=== PATIENT | male | born 1945 | race Caucasian/White ===

== ENCOUNTER 2020-06-21 07:39 | Outpatient (CLI) | payer OTHER, MEDICARE, SELFPAY ==
--- NOTE | ~2020-06-21 | XR_ITS ---
XR shoulder RT min 2V 06/21/2020 08:11 Indication: Right shoulder pain Procedure: 5 views right shoulder Comparison: 01/16/2017 Findings: There is polyarticular osteoarthritis of the right shoulder. There is superior subluxation of the humerus with narrowing of the subacromial space, likely due to rotator cuff tear. No acute fra cture. Visualized lung parenchyma is unremarkable. 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 Reviewed, dictated and finalized at location A. 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
== END 2020-06-21 07:40 | disposition home or self-care (01) ==
LOC: CHSIMG 07:44
PROVIDERS: PCP Internal Medicine; Visit Provider Orthopaedic Surgery
DX: M25.511 Pain in right shoulder (principal)
CPT/HCPCS: 73030

== ENCOUNTER → 2021-10-01 00:18 | Outpatient (CLI) | payer MEDICARE, OTHER, SELFPAY ==
[2021-10-01 11:16] LABS: SARS-CoV-2 RNA PCR Negative
== END ==
PROVIDERS: PCP Internal Medicine; Visit Provider Internal Medicine Gastroenterology
DX: Z01.812 Encounter for preprocedural laboratory examination (principal); Z20.822 Contact with and (suspected) exposure to COVID-19
CPT/HCPCS: C9803; U0003; U0005

== ENCOUNTER 2021-10-04 00:07 | Day surgery (SDC) | payer MEDICARE, OTHER, SELFPAY ==
[2021-09-20 08:49] VITALS: BMI 28.1
[2021-10-04 06:35] VITALS: BP 175/79; PULSE 55; RESP 18; TEMP 36.4; O2SAT 100; BMI 27.9
--- NOTE | 2021-10-04 06:47 | WPDANESEPPF ---
Anes - Initial Pre Proc Eval Procedure: Operation Date: 10/04/21 08:00 Proposed Procedures p Screening Colonoscopy - Vicente Bain MD Date/Time: 10/04/21 06:47 Surgeon: Vicente Bain MD Pre Op Diagnosis: hx of colon polyps, neoplasm screening Patient Data Age: 76 Gender: M Height: 1.73 m Weight: 83.4 kg Last Vital Signs Temp 36.4 C L 10/04/21 06:35 Pulse 55 L 10/04/21 06:35 Resp 18 10/04/21 06:35 BP 175/79 H 10/04/21 06:35 Pulse Ox 100 10/04/21 06:35 Allergies Allergy/AdvReac Type Severity Reaction Status Date / Time No Known Allergies Allergy Verified 10/04/21 06:43 Home Medications Medication Instructions Recorded Confirmed Type acetaminophen 325 mg capsule 325 mg PO Q6H PRN 06/21/20 10/04/21 History allopurinol 100 mg tablet 200 mg PO DAILY 06/21/20 10/04/21 History aspirin 81 mg tablet,delayed 81 mg PO DAILY 06/21/20 10/04/21 History release uauzwet-reyihnuei-nrxqrh-zinc 1 tablet PO DAILY 06/21/20 10/04/21 History tablet ibuprofen 200 mg capsule 200 mg PO Q6H PRN 06/21/20 10/04/21 History lisinopril 40 mg tablet 40 mg PO DAILY 06/21/20 10/04/21 History lovastatin 40 mg tablet 40 mg PO DAILY 06/21/20 10/04/21 History metoprolol tartrate 25 mg tablet 25 mg PO DAILY 06/21/20 10/04/21 History jugyhwec-vsx-ewwfx acid 0.4 1 tablet PO DAILY 06/21/20 10/04/21 History mg-lycopene 300 mcg-lutein 250 mcg tablet celecoxib 200 mg PO DAILY 09/20/21 10/04/21 History glucosamine sulfate [Glucosamine] 1 mg PO DAILY 09/20/21 10/04/21 History omega 9-qgm-ime-fish oil [Fish Oil] 1 cap PO DAILY 09/20/21 10/04/21 History sitagliptin-metformin [Janumet] 1 tablet PO DAILY 09/20/21 10/04/21 History Patient hx anesthesia problems: none Family hx anesthesia problems: none Results Review: All pre-operative results and documents have been reviewed as part of the pre-operative evaluation. COUNT INCLUDES [facility] Past Medical History Medical History (Updated 06/21/20 @ 15:45 by Mishel Fuentes RT(R)) Gout High cholesterol Hypertension Rotator cuff arthropathy of right shoulder Type II diabetes mellitus Surgical History Surgical History (Updated 10/03/21 @ 14:40 by Saúl Gamino DO) History of carpal tunnel surgery of right wrist History of prostatectomy Family History Family History Grandparent Diabetes mellitus Mother Hypertension Father Patient's father is Social History Social History Smoking status: Never smoker Alcohol intake: never Substance use: never Substance use type: does not use Living arrangements: with family Spiritual care concerns: No Anes - Eval Final PreProcedure Day of Procedure 10/04/21 06:47 Patient weight: overweight Heart: regular rate and rhythm Lungs: clear to auscultation and normal air movement Airway: Mallampati scale class II Neurological: alert and oriented Last oral intake: >/= 8 hours ASA classification: III Emergent: no Anesthetic plan: proceed Anesthesia type and monitoring: general GIVS and standard monitoring Results Review: All pre-operative results and documents have been reviewed as part of the pre-operative evaluation. Informed Consent: The patient's anesthetic plan and its attendant risks and benefits were discussed with the patient/family/POA. Questions were solicited and answers provided to the satisfaction of the patient/family/POA.
[2021-10-04] MEDS: LACTATED RINGERS 1,000 ML 150 ML IV CONT (07:01)
[2021-10-04 07:04] LABS: Glucose Point of Care 189 mg/dl (65-105)
--- NOTE | 2021-10-04 07:47 | PM.HPGS ---
History of Present Illness History of Present Illness Consent: Risks, benefits, and alternatives have been discussed and questions answered. Patient agrees to proceed with procedure. Chief complaint: hx of colon polyps, neoplasm screening Narrative: Griffin Roe is a 76 year old male with history of colon polyp due to have another colonoscopy Review of Systems Constitutional: Constitutional: Denies headache(s) and Denies weakness Eyes: Eyes: Denies blurry vision ENT: Reports Normal hearing present, Denies headache(s) and Denies neck pain Cardiovascular: Cardiovascular: Denies chest pain and Denies dyspnea Respiratory: Respiratory: Denies dyspnea Gastrointestinal: Gastrointestinal: Reports no additional gastrointestinal complaints Genitourinary: Genitourinary: Denies dysuria Musculoskeletal: Musculoskeletal: Denies neck pain Integumentary/Breasts: Skin/Breast: Denies dry skin Neurologic: Reports Normal hearing present, Denies headache(s) and Denies weakness Psychiatric: Psychiatric: Denies anxiety Endocrine: Endocrine: Denies change in body appearance Hematologic/Lymphatic: Hematologic/Lymphatic: Denies easy bleeding Allergic/Immunologic: Allergic/Immunologic: Denies urticaria PMFSH Past Medical History Medical History (Updated 10/04/21 @ 07:47 by Vicente Bain MD) Colon polyp Gout High cholesterol Hypertension Rotator cuff arthropathy of right shoulder Type II diabetes mellitus Surgical History Surgical History (Updated 10/03/21 @ 14:40 by Saúl Gamino DO) History of carpal tunnel surgery of right wrist History of prostatectomy Family History Family History Grandparent Diabetes mellitus Mother Hypertension Father Patient's father is Social History Social History Smoking status: Never smoker Alcohol intake: never Substance use: never Substance use type: does not use Living arrangements: with family Spiritual care concerns: No Meds Home Medications and Allergies Home Medications Medication Instructions Recorded Confirmed Type acetaminophen 325 mg capsule 325 mg PO Q6H PRN 06/21/20 10/04/21 History allopurinol 100 mg tablet 200 mg PO DAILY 06/21/20 10/04/21 History aspirin 81 mg tablet,delayed 81 mg PO DAILY 06/21/20 10/04/21 History release rqnstou-oaxpssyxl-aqxvhx-zinc 1 tablet PO DAILY 06/21/20 10/04/21 History tablet ibuprofen 200 mg capsule 200 mg PO Q6H PRN 06/21/20 10/04/21 History lisinopril 40 mg tablet 40 mg PO DAILY 06/21/20 10/04/21 History lovastatin 40 mg tablet 40 mg PO DAILY 06/21/20 10/04/21 History metoprolol tartrate 25 mg tablet 25 mg PO DAILY 06/21/20 10/04/21 History pakxsowc-fyf-xehww acid 0.4 1 tablet PO DAILY 06/21/20 10/04/21 History mg-lycopene 300 mcg-lutein 250 mcg tablet celecoxib 200 mg PO DAILY 09/20/21 10/04/21 History glucosamine sulfate [Glucosamine] 1 mg PO DAILY 09/20/21 10/04/21 History omega 3-kcq-jqf-fish oil [Fish Oil] 1 cap PO DAILY 09/20/21 10/04/21 History sitagliptin-metformin [Janumet] 1 tablet PO DAILY 09/20/21 10/04/21 History Allergies Allergy/AdvReac Type Severity Reaction Status Date / Time No Known Allergies Allergy Verified 10/04/21 06:43 Vital Signs Vital Signs - 24 hr 10/04/21 06:35 Temperature 97.5 F L Pulse Rate 55 L Respiratory Rate 18 Blood Pressure 175/79 H Pulse Oximetry 100 Exam Const: General: comfortable and no acute distress HENMT: General nose exam: Normal nares present Eyes: General: appearance normal, both eyes and all related structures Neck: Neck: no JVD Resp: Auscultation: clear to auscultation bilaterally Cardio: Rate: regular rate Rhythm: regular rhythm GI: Inspection: non-distended GI Palp: Yes Soft to palpation Skin: General skin exam: normal color Neuro: General: gait no
[2021-10-04 08:26] VITALS: BP 100/75; PULSE 62; RESP 21; O2SAT 100
[2021-10-04 08:36] VITALS: BP 106/65; PULSE 56; RESP 20; O2SAT 100
[2021-10-04 08:46] VITALS: BP 115/72; PULSE 55; RESP 20; O2SAT 100
== END 2021-10-04 09:01 | disposition home or self-care (01) ==
PROVIDERS: PCP Internal Medicine; Visit Provider Internal Medicine Gastroenterology
PROC: 0DJD8ZZ Inspection of Lower Intestinal Tract, Via Natural or Artificial Opening Endoscopic (ICD-10-PCS; CPT 45378; principal; 2021-10-04 08:00)
DX: Z12.11 Encounter for screening for malignant neoplasm of colon (principal); K64.8 Other hemorrhoids; K57.30 Diverticulosis of large intestine without perforation or abscess without bleeding; Z86.010 Personal history of colon polyps; I10 Essential (primary) hypertension; E11.9 Type 2 diabetes mellitus without complications; E78.00 Pure hypercholesterolemia, unspecified; M10.9 Gout, unspecified; Z79.82 Long term (current) use of aspirin; Z79.84 Long term (current) use of oral hypoglycemic drugs
CPT/HCPCS: G0105; 82948; J2704; J7120

== ENCOUNTER 2021-12-12 09:10 | Outpatient (CLI) | payer MEDICARE, OTHER, SELFPAY ==
[2021-12-12 10:29] LABS: SARS-CoV-2 RNA PCR Negative (Negative)
== END 2021-12-12 09:11 | disposition home or self-care (01) ==
LOC: CHSLAB 09:18
PROVIDERS: PCP Internal Medicine; Visit Provider Internal Medicine Critical Care Medicine
DX: Z01.812 Encounter for preprocedural laboratory examination (principal); Z20.822 Contact with and (suspected) exposure to COVID-19
CPT/HCPCS: C9803; U0003; U0005

== ENCOUNTER 2021-12-14 19:53 | Outpatient (CLI) | payer MEDICARE, OTHER, SELFPAY ==
--- NOTE | 2021-12-15 20:32 | WPDSLEEPSTUD ---
Sleep Study Date of Study: 12/14/21 Ordering Provider: Edwar Mike APRN Interpreting Physician: Gin Martinez MD Sleep Study Type: BiPAP Titration Height: 1.73 m Weight: 5.103 kg Body Mass Index: 1.7 Neck Circumference (inches): 17.5 [place]: 9 Reason for Sleep Study History of mixed sleep apnea, has not worn CPAP for many years * 09/15/2011 PSG @ [facility] - severe complex sleep apnea with AHI 58 with saturation to 83%. * 11/14/2011 Bilevel Titration @ [facility] - recommend BiPAP 28/02 with rate 12 Sleep History Griffin Roe is a 76 year old man with difficulty getting to sleep and staying asleep. There is heavy snoring and jerking while sleeping. His initial sleep study was in 2011, he says that he was on CPAP for about 6 years and for some reason just quit using it. He does not awaken from sleep feeling short of breath. He occasionally awakens at night with heartburn, belching coughing. He constantly snores and frequently this is loud enough that others complain about it. He rarely has trouble sleeping with a cold. He does not wake up gasping for breath at night. He frequently has breathing problems at night observed by others. He frequently sweats excessively night. He does not notice his heart pounding or beating irregularly at night. He occasionally falls asleep during the day. He does not fall asleep involuntarily or while driving. He does not have loss of muscle tone with strong emotion. Does not have daytime difficulties due to excessive sleepiness. He does not feel paralyzed on waking or falling asleep. He occasionally has vivid dreamlike scenes upon awakening or falling asleep. He does not feel afraid to go to sleep. He does not have nightmares. He rarely remembers his dreams. He does not have racing thoughts. He occasionally feels sad or depressed. He rarely has anxiety. He does not have muscular tension. Does not notice parts of his body jerking. He does not kick at night. He denies having crawling and aching feelings in his legs. He does not have any kind of leg pain at night. He does not have morning jaw pain. Does not grind his teeth during sleep. He frequently is bothered by pain during the day. He is not awakened by pain at night. He occasionally wakes up feeling stiff in the morning. He does not wake up with sore or achy muscles. He occasionally wakes up with pain in the neck and spine. Normal bedtime is 10:30 p.m. taking 1/2 hour to fall asleep waking up 3 times at night to go to the bathroom. His normal wake up time is 5:00 a.m.. On the weekends bedtime is 11:00 p.m., still wakes at 5:00 a.m. He takes naps in the day. A short nap 10-15 minutes long is refreshing. He feels better in the afternoon or evening compared to the morning. He often wakes up feeling tired, not refreshed. Habits: Never smoked tobacco. No caffeine, alcohol, recreational drugs. [facility] Past Medical History Medical History (Updated 01/13/22 @ 18:29 by Gin Martinez MD) Colon polyp Gout High cholesterol Hypertension Obesity Obstructive sleep apnea Prostate cancer Rotator cuff arthropathy of right shoulder Type II diabetes mellitus Surgical History Surgical History History of carpal tunnel surgery of right wrist History of prostatectomy Family History Family History Grandparent Diabetes mellitus Mother Hypertension Father Patient's father is Social History Social History Smoking status: Never smoker Alcohol intake: never Substance use: never Substance use type: does not use Spiritual care concerns: No Medications Home Medications Medication Instructions Recorded Confirmed Type acetaminophen 325 mg capsule 325 mg PO Q6H PRN Headache 06/21/20 11/25/21 History (Tylenol) allop
== END 2021-12-15 05:16 | disposition home or self-care (01) ==
LOC: CHSCSM 19:55
PROVIDERS: PCP Internal Medicine; Visit Provider Nurse Practitioner Family
DX: G47.30 Sleep apnea, unspecified (principal)
CPT/HCPCS: 95811

== ENCOUNTER 2022-02-03 09:42 | Outpatient (CLI) | payer MEDICARE, OTHER, SELFPAY ==
--- NOTE | 2022-02-03 09:43 | ECHO_ITS ---
Patient Info Name: Griffin Roe Age: 76 years : 1945 Gender: Male Ht: 68 in Wt: 187 lbs BSA: 2.04 m2 HR: 65 bpm BP: 165 / 91 mmHg Technical Quality: Good Exam Date: 02/03/2022 9:58 AM Exam Location: [facility] Patient Status: Outpatient Admit Date: 02/03/2022 Staff Ordering Physician: Gypsy Thomas PA-C [employer]osaic Tile Maker: Joslyn Abad RDCS Attending Provider: Gypsy Thomas PA-C Exam Type: CA echo doppler color flow Study Info Indications G47.31 - PRIMARY CENTRAL SLEEP APNEA Complete two-dimensional, color flow and Doppler transthoracic echocardiogram is performed. Summary 1. Complete two-dimensional, color flow and Doppler transthoracic echocardiogram is performed. 2. Left ventricular chamber dimension is normal. 3. Left ventricular systolic function is normal, estimated at 60-65%. 4. The left ventricular diastolic function is grade I diastolic dysfunction. 5. E/e' 8 is minimally elevated. 6. Global longitudinal strain is normal at -20.0%. 7. Left atrial chamber dimension is moderately enlarged. 8. There is mild aortic valve regurgitation. 9. No pulmonary hypertension, estimated pulmonary arterial systolic pressure is 31 mmHg. Left Ventricle E/e' 8 is minimally elevated. Global longitudinal strain is normal at -20.0%. Left ventricular chamber dimension is normal. Left ventricular systolic function is normal, estimated at 60-65%. The left ventricular diastolic function is grade I diastolic dysfunction. Right Ventricle Right ventricular systolic function is normal and with normal TAPSE 2.8 cm. Right ventricular chamber dimension is normal. Left Atria Left atrial chamber dimension is moderately enlarged. Right Atria Right atrial chamber dimension is normal. Aortic Valve The aortic valve is trileaflet. There is no aortic valve stenosis. There is mild aortic valve regurgitation. Pulmonic Valve There is no pulmonic regurgitation. Mitral Valve There is no mitral valve stenosis. There is no mitral valve regurgitation. Tricuspid Valve There is no tricuspid valve regurgitation. No pulmonary hypertension, estimated pulmonary arterial systolic pressure is 31 mmHg. Pericardium/Pleural There is no pericardial effusion. Inferior Vena Cava Normal inferior vena cava with >50% collapse upon inspiration consistent with normal right atrial pressure, 5 mmHg. Aorta The aortic root size at the sinus of Valsalva is normal. Left Ventricular Outflow Tract Name Value Normal LVOT 2D LVOT Diameter 2.1 cm LVOT Doppler LVOT Peak Gradient 3 mmHg LVOT Mean Gradient 2 mmHg LVOT VTI 20 cm LVOT VTI/AV VTI Ratio 0.8 LVOT Stroke Volume 69 ml LVOT CO 4.3 l/min LVOT CI 2.1 l/min/m2 Pulmonic Valve Name Value Normal
== END 2022-02-03 09:43 | disposition home or self-care (01) ==
LOC: ANHCARD 09:43
PROVIDERS: PCP Internal Medicine; Visit Provider Physician Assistant
DX: G47.31 Primary central sleep apnea (principal)
CPT/HCPCS: 93306

== ENCOUNTER 2022-09-08 10:10 | Outpatient (RCR) | payer MEDICARE, OTHER, SELFPAY ==
--- NOTE | 2022-09-08 13:34 | PTOPEVAL1 ---
Assessment and note entered by Margi Fox DPT Evaluation Information Assessment Status Evaluation Diagnosis L knee pain Onset 09/05/22 Subjective Information Patient he has had L knee pain for the last ~2 years. He reports he went to the MD who said his knee was bone on bone . He has had injections that helped with pain for a short amount of time. He reports he is now getting a gel injection and to attend PT for 2-3 visits to learn HEP. He reports pain is most present when he weight bears on the L LE. 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 Reported Pain Level Pain Score 0: Self Report Assessment PT Clinical Summary Patient is a 77 year old male who presents to PT with L knee pain. 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 He would benefit from skilled PT to address impairments and learn independent HEP to return to [facility]. Plan of Care Interventions Electrical Stimulation,Gait Training,Hot Pack/Cold Pack,Manual Therapy,Mechanical Traction,Neuro Re- education,Patient/Caregiver Educati,Therapeutic Activities,Therapeutic Exercise PT Services Indicated Yes Treatment Frequency and 2x/weekly for 10 visits Duration These treatments will address the objective and functional deficits as defined above. The patient will be advanced safely and appropriately in order for the patient to progress towards his/her prior level of function. Additional exercises will be introduced and as well as a comprehensive home exercise program upon discharge, if needed, ?to ensure carryover of functional gains achieved in the clinic. This treatment plan has been reviewed and agreement upon by the patient.
--- NOTE | 2022-10-02 08:14 | PTOPDC ---
Assessment and note entered by Margi Fox DPT Evaluation Information Assessment Status Re-evaluation Diagnosis L knee pain Onset 09/05/22 Subjective Information Patient reports his pain has decreased pain most times. He does report that he gets pain when he pivots on the L LE. 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 He goes to get a gel injection tomorrow in the L knee. Reported Pain Level Pain Score 0: Self Report Assessment PT Clinical Summary Patient has been seen for 8 visits from 09/08/22-03/06. He has made good progress and met goals for strength and ROM. 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 He is independent with HEP and is appropriate for DC at this time. Plan of Care PT Services Indicated No
== END 2022-12-07 23:59 | disposition home or self-care (01) ==
LOC: CHSPT 10:10
DX: M25.562 Pain in left knee (principal); M17.12 Unilateral primary osteoarthritis, left knee
CPT/HCPCS: 97014; 97110; 97161; 97530; G0283

== ENCOUNTER 2023-07-18 09:47 | Outpatient (RCR) | payer MEDICARE, OTHER, SELFPAY ==
--- NOTE | 2023-07-18 10:39 | OPREHPOC ---
Outpatient Therapy Plan of Care This is a Multidisciplinary Plan of Care that may contain components documented by all disciplines (PT, OT, and ST.) PT Problem 1 PT Problem #1 Knowledge Deficit PT Goal 1 Goal 1. independent and compliant with HEP Target Visit 6 PT Problem 2 PT Problem #2 Impaired Strength PT Goal 1 Goal 1. 3+/5 or better L shoulder flex Target Visit 12 PT Problem 3 PT Problem #3 Impaired Range of Motion PT Goal 1 Goal 1. improve active L shoulder flexion to 90 degrees Target Visit 6 PT Goal 2 Goal 1. improve active L shoulder flexion to 120 degrees or better 2. improve L shoulder active ER to 65 degrees or better 3. improve L shoulder active IR to 60 degrees or better Target Visit 12 PT Problem 4 PT Problem #4 Impaired Functional Mobil PT Goal 1 Goal 1. quick dash to display less than 40% functional deficits 2. patient to lift 2lbs to shoulder level shelf with the L hand. 3. patient to push car door open with the L hand with no increased pain/symptoms 4. patient to dress shirts and coats without increased pain or difficulty with the L UE. Target Visit 12
--- NOTE | 2023-07-18 10:40 | PTOPEVAL1 ---
Assessment and note entered by JT File, PT Evaluation Information Assessment Status Evaluation Diagnosis bilateral shoulder pain, bilateral rotator cuff arthropathy, trap spasms Onset 05/18/23 Subjective Information patient reports around the beginning of May he began having a burning in the L shoulder and down the arm. he went to the chiropractor which helped. he then got injections to the shoulder and had x-rays of the shoulders. he reports the R shoulder is worse on x-rays compared to the L. he reports he continued treatment with chiropractor for a while. he reports he has no neck pain. he reports it is mostly the L more than the R shoulder. he reports he has increased pain in the L shoulder with pushing the car door open. he reports he is taking a lot of ibuprofen that helps . he reports it is also difficult to put on shirt and coat. he reports he is unable to lift the arm up straight in front of him. out to the side is better he reports. Reported Pain Level Pain Score 5: Self Report Assessment PT Clinical Summary mr. larsen is an 78 yo man who presents to skilled PT services for evaluation and treatment of L shoulder pain. he presents this date with pain, weakness, decreased rom, and limited functional reaching of the L shoulder. he displays signs and symptoms consistent with L rotator cuff tear/tendonitis. he also displays weakening of the R rotator cuff. likely bilateral rotator cuff arthropathy that is worse on the L. he would benefit from continued skilled PT to address his objective/functional deficits and improve his functional reaching/lifting and use of the L UE to improve his quality of life. Plan of Care Interventions Electrical Stimulation,Hot Pack/Cold Pack,Manual Therapy,Neuro Re-education,Patient/Caregiver Educati,Therapeutic Activities,Therapeutic Exercise PT Services Indicated Yes Treatment Frequency and 3x weekly for 12 visits Duration These treatments will address the objective and functional deficits as defined above. The patient will be advanced safely and appropriately in order for the patient to progress towards his/her prior level of function. Additional exercises will be introduced and as well as a comprehensive home exercise program upon discharge, if needed, ?to ensure carryover of functional gains achieved in the clinic. This treatment plan has been reviewed and agreement upon by the patient.
--- NOTE | 2023-08-13 08:33 | OPREHPOC ---
Outpatient Therapy Plan of Care This is a Multidisciplinary Plan of Care that may contain components documented by all disciplines (PT, OT, and ST.) PT Problem 1 PT Problem #1 Knowledge Deficit PT Goal 1 Goal 1. independent and compliant with HEP Target Visit 6 PT Problem 2 PT Problem #2 Impaired Strength PT Goal 1 Goal 1. 3+/5 or better L shoulder flex Target Visit 12 Comment unable to reach 90deg PT Problem 3 PT Problem #3 Impaired Range of Motion PT Goal 1 Goal 1. improve active L shoulder flexion to 90 degrees Target Visit 6 Progress Not Met PT Goal 2 Goal 1. improve active L shoulder flexion to 120 degrees or better 2. improve L shoulder active ER to 65 degrees or better 3. improve L shoulder active IR to 60 degrees or better Target Visit 12 Comment continue PT Problem 4 PT Problem #4 Impaired Functional Mobil PT Goal 1 Goal 1. quick dash to display less than 40% functional deficits 2. patient to lift 2lbs to shoulder level shelf with the L hand. 3. patient to push car door open with the L hand with no increased pain/symptoms 4. patient to dress shirts and coats without increased pain or difficulty with the L UE. Target Visit 12 Comment continue
--- NOTE | 2023-08-13 08:33 | PTOPPROG ---
Assessment and note entered by Margi Fox DPT Evaluation Information Assessment Status Re-evaluation Diagnosis bilateral shoulder pain, bilateral rotator cuff arthropathy, trap spasms Onset 05/18/23 Subjective Information patient reports his shoulder has improved since start of PT. he reports he has been able to do most house hold activities as long as he does not have to reach overhead. he reports the burning and shooting pain down his arm has improved. he reports he continues to have catching with reaching above shoulder height. he reports he returns to MD next week. Assessment PT Clinical Summary Mr. Roe has been seen for 10 visits of skilled PT. He reports overall decreased pain in the L arm and has been able to perform tasks below shoulder height. He reports he continues to have difficulty with reaching over shoulder height and gets a catch . He does demonstrate improved L shoulder flexion to 73 degs but is unable to push past pain. He would benefit from continued skilled PT to address remaining impairments and return to [facility]. Plan of Care Interventions Electrical Stimulation,Hot Pack/Cold Pack,Manual Therapy,Neuro Re-education,Patient/Caregiver Educati,Therapeutic Activities,Therapeutic Exercise PT Services Indicated Yes Treatment Frequency and continue with remaining 2 visits Duration These treatments will address the objective and functional deficits as defined above. The patient will be advanced safely and appropriately in order for the patient to progress towards his/her prior level of function. Additional exercises will be introduced and as well as a comprehensive home exercise program upon discharge, if needed, ?to ensure carryover of functional gains achieved in the clinic. This treatment plan has been reviewed and agreement upon by the patient.
--- NOTE | 2023-08-20 09:36 | OPREHPOC ---
Outpatient Therapy Plan of Care This is a Multidisciplinary Plan of Care that may contain components documented by all disciplines (PT, OT, and ST.) PT Problem 1 PT Problem #1 Knowledge Deficit PT Goal 1 Goal 1. independent and compliant with HEP Target Visit 6 Progress Not Met PT Problem 2 PT Problem #2 Impaired Strength PT Goal 1 Goal 1. 3+/5 or better L shoulder flex Target Visit 12 Progress Met Comment . PT Problem 3 PT Problem #3 Impaired Range of Motion PT Goal 1 Goal 1. improve active L shoulder flexion to 90 degrees Target Visit 6 Progress Met PT Goal 2 Goal 1. improve active L shoulder flexion to 120 degrees or better 2. improve L shoulder active ER to 65 degrees or better 3. improve L shoulder active IR to 60 degrees or better Target Visit 12 Progress Not Met Comment . PT Problem 4 PT Problem #4 Impaired Functional Mobil PT Goal 1 Goal 1. quick dash to display less than 40% functional deficits 2. patient to lift 2lbs to shoulder level shelf with the L hand. 3. patient to push car door open with the L hand with no increased pain/symptoms 4. patient to dress shirts and coats without increased pain or difficulty with the L UE. Target Visit 12 Progress Not Met Comment .
--- NOTE | 2023-08-20 09:36 | PTOPDC ---
Assessment and note entered by Margi Fox DPT Evaluation Information Assessment Status Evaluation Diagnosis bilateral shoulder pain, bilateral rotator cuff arthropathy, trap spasms Onset 05/18/23 Subjective Information patient reports shoulder has improved since start of PT. He reports that he continues to have pain with activity above his head. he reports pain with dressing and opening car doors. he reports he is not always good at doing his HEP but is active at home. RTMD on 08/22/23 Reported Pain Level Pain Score 2: Self Report Assessment PT Clinical Summary Mr. Roe was seen for 12 visits of skilled PT. He made progress but is continue to be limited with activities above his head with reported catch with positive painful arc of the L UE. He continues to have limited AROM of the L shoulder and decreased strength. He reports improvement in function below shoulder height with some pain with dressing and opening car doors. Patient returns to MD on 08/22/23. He will be discharged to independent [facility] at this time. Plan of Care PT Services Indicated No
== END 2023-08-20 10:18 | disposition home or self-care (01) ==
LOC: CHSPT 09:47
DX: M25.511 Pain in right shoulder (principal); M25.512 Pain in left shoulder; M12.811 Other specific arthropathies, not elsewhere classified, right shoulder; M12.812 Other specific arthropathies, not elsewhere classified, left shoulder; M62.838 Other muscle spasm
CPT/HCPCS: 71046; 97014; 97110; 97161; G0283

== ENCOUNTER 2023-07-18 11:25 | Outpatient (CLI) | payer MEDICARE, OTHER, SELFPAY ==
--- NOTE | ~2023-07-18 | XR_ITS ---
Clinical Indication: Bradycardia PA and lateral views of the chest: Comparison: None Findings: The lungs are clear, without evidence of focal consolidation or pleural effusion. Cardiome diastinal silhouette is within normal limits. Bones and soft tissues are unremarkable. Impression: Normal chest. Reviewed, dictated and finalized at location . L SUMMER INTERN Impression: Normal chest.
== END 2023-07-18 11:26 | disposition home or self-care (01) ==
LOC: CHSIMG 11:29
PROVIDERS: PCP Internal Medicine; Visit Provider Internal Medicine
DX: E83.52 Hypercalcemia (principal); R00.1 Bradycardia, unspecified
CPT/HCPCS: 71046

== ENCOUNTER 2023-12-13 09:40 | Outpatient (CLI) | payer MEDICARE, OTHER, SELFPAY ==
[2023-12-13 09:55] LABS: Basophils Absolute Auto 0.06 K/mm3 (0.00-0.10); Basophils Percent Auto 0.8 % (0.0-1.0); Eosinophils Absolute Auto 0.22 K/mm3 (0.02-0.50); Eosinophils Percent Auto 2.8 % (1.0-6.0); Hematocrit 45.8 % (37.0-46.0); Hemoglobin 15.7 g/dL (12.4-15.3); Immature Granulocyte Absolute 0.08 K/mm3 (0.00-0.00); Lymphocytes Absolute Auto 1.84 K/mm3 (1.10-4.50); Lymphocytes Percent Auto 23.8 % (18.0-42.0); Mean Corpuscular HGB Conc 34.3 g/dL (32-36); Mean Corpuscular Volume 90.3 fL (78.0-102.0); Mean Platelet Volume 10.4 fl (8.7-11.0); Monocytes Absolute Auto 0.55 K/mm3 (0.10-0.90); Monocytes Percent Auto 7.1 % (2.0-11.0); Neutrophils Absolute Auto 4.98 K/mm3 (1.70-7.20); Neutrophils Percent Auto 64.5 % (50.0-70.0); Platelet Count Result 153 K/mm3 (150-420); Red Blood Count 5.07 M/mm3 (4.70-6.10); Red Cell Distribution Width 13.5 % (11.6-14.4); White Blood Count 7.7 K/mm3 (4.8-10.8)
[2023-12-13 10:08] LABS: Appearance Urine Clear (Clear); Bilirubin Urine Negative (Negative); Blood Urine Negative (Negative); Color Urine Light Yellow (Yellow); Glucose Urine UA 3+ (Negative); Ketones Urine Negative (Negative); Leukocyte Esterase Ur Negative (Negative); Nitrate Urine Negative (Negative); Protein Urine Negative (Negative); Specific Grav Ur 1.015 (1.010-1.020); Urobilinogen Urine 0.2 mg/dL (0.2-1.0)
[2023-12-13 10:15] LABS: Add Urine Microscopic? YES; RBC Urine None seen /hpf (0-2); WBC Urine Noted /hpf (0-3)
[2023-12-13 10:16] LABS: Bacteria Urine None seen /hpf; Squamous Epithelial Cell Urine Few /hpf (Few); Transitional Epi Cells Urine Few /hpf; White Blood Cell Casts Urine Present /lpf
[2023-12-13 10:29] LABS: Alanine Aminotransferase 29 U/L (16-63); Albumin Level 3.8 g/dL (3.4-5.0); Alkaline Phosphatase 99 U/L (46-116); Anion Gap 12 mmol/L (4-12); Aspartate Amino Transferase 22 U/L (15-37); Bilirubin,Total 0.4 mg/dL (0.00-1.00); Blood Urea Nitrogen 49 mg/dL (7-18); Calcium 9.8 mg/dL (8.5-10.1); Carbon Dioxide 21 mmol/L (21-32); Chloride 104 mmol/L (98-108); Estimated Glomerular Filt Rate 30; Glucose 180 mg/dL (70-99); Osmolality Calculated 302 mOsm/kg (285-295); Phosphorus 4.9 mg/dL (2.6-4.7); Potassium 5.1 mmol/L (3.5-5.1); Sodium 137 mmol/L (136-145); Uric Acid 4.3 mg/dL (3.5-7.2)
[2023-12-13 10:31] LABS: CRP < 0.5 mg/dL (0.0-0.9)
[2023-12-14 12:23] LABS: Parathyroid Intact 58 pg/mL (16-77)
== END 2023-12-13 09:41 | disposition home or self-care (01) ==
LOC: CHSLAB 09:43
PROVIDERS: PCP Internal Medicine; Visit Provider Internal Medicine
DX: N17.8 Other acute kidney failure (principal)
CPT/HCPCS: 36415; 80053; 81001; 83970; 84100; 84550; 85025; 86140

== ENCOUNTER 2023-12-17 08:21 | Outpatient (CLI) | payer MEDICARE, OTHER, SELFPAY ==
--- NOTE | 2023-12-17 08:31 | EST_ITS ---
Patient Info Name: Griffin Roe Age: 78 years : 1945 Gender: Male Ht: 65 in Wt: 190 lbs BSA: 2.02 m2 HR: 48 bpm BP: 138 / 71 mmHg Heart Rhythm: Sinus Rhythm Technical Quality: Good Exam Date: 12/17/2023 9:30 AM Exam Location: Echo Lab Patient Status: Outpatient Admit Date: 12/17/2023 Staff Ordering Physician: Oracio De Guzman Attending Provider: Oracio De Guzman Exam Type: CA stress jatin w NM Study Info A regadenoson stress test was performed. History/Risk Factors Hypertension: Yes Dyslipidemia: Yes Diabetes Mellitus: Type II Summary 1. 1. Negative lexiscan stress test for ischemic ST changes by ECG criteria. 2. 2. Stable hemodynamics throughout the test. 3. 3. Nuclear scan to follow and will be reported separately. Please correlate with it. Protocol: Lexiscan Stress ECG Details Stage: REST Duration (min): 1 min : 19 sec HR (bpm): 48 SBP (mmHg): 138 DBP (mmHg): 71 Stage: REST Duration (min): 8 min : 8 sec HR (bpm): 52 SBP (mmHg): 138 DBP (mmHg): 71 Stage: STAGE 1 Duration (min): 0 min : 28 sec HR (bpm): 55 SBP (mmHg): 138 DBP (mmHg): 71 Stage: RECOVERY Duration (min): 0 min : 32 sec HR (bpm): 58 SBP (mmHg): 138 DBP (mmHg): 71 Stage: RECOVERY Duration (min): 1 min : 32 sec HR (bpm): 65 SBP (mmHg): 138 DBP (mmHg): 71 Stage: RECOVERY Duration (min): 2 min : 32 sec HR (bpm): 68 SBP (mmHg): 138 DBP (mmHg): 71 Stage: RECOVERY Duration (min): 3 min : 32 sec HR (bpm): 64 SBP (mmHg): 138 DBP (mmHg): 71 Stage: RECOVERY Duration (min): 4 min : 26 sec HR (bpm): 65 SBP (mmHg): 115 DBP (mmHg): 65 Rest HR: 52 bpm Peak HR: 69 bpm Rest Sys BP: 138 mmHg Peak Sys BP: 115 mmHg Max Pred HR: 140 bpm % Max Pred HR: 49 % Target HR: 119 bpm Max RPP: 7,935 bpm*mmHg BP Response: Normal blood pressure response Termination Reason: Completed Protocol Cardiac Symptoms: None Total Time: 0 min : 28 sec Rest Alejandro BP: 71 mmHg Peak Alejandro BP: 65 mmHg Total Dose: 0.4 mg Resting ECG Sinus bradycardia, IVCD, cannot r/o septal infarct, age indeterminate. Stress ECG No abnormal ST/T wave changes. Arrhythmias Occasional PVCs. Report Signatures
--- NOTE | 2023-12-17 14:59 | WPDCARIOSTRE ---
Nuclear Stress Test INDICATIONS Indications: Chest pain PROCEDURE Procedure Performed: Myocardial Perf Spect-Multi Procedure: Patient underwent a lexiscan stress test and immediately was injected with 33.8 mCi of cardiolyte. Multiple tomographic images were obtained. These are of good quality. There is a moderate size, mild inferior perfusion defect with stress imaging. A separate resting images were obtained after patient was injected with 10.4 mCi of cardiolyte. Multiple tomographic images were obtained. These are of good quality. There is a moderate size, mild inferior perfusion defect with rest imaging. CONCLUSION Conclusion: 1. Myocardial perfusion imaging demonstrating a fixed moderate size inferior perfusion defect suggestive of diaphragmatic attenuation artifact. 2. No evidence of reversible ischemia. 3. Left ventriculogram demonstrates mildly global reduced measured LV systolic function with EF 47%. 4. TID score 1.09 is normal.
== END 2023-12-17 08:22 | disposition home or self-care (01) ==
PROVIDERS: PCP Internal Medicine
DX: Z01.818 Encounter for other preprocedural examination (principal); R07.9 Chest pain, unspecified; R00.1 Bradycardia, unspecified; R94.31 Abnormal electrocardiogram [ECG] [EKG]
CPT/HCPCS: 78452; 93017; A9502; J2785

== ENCOUNTER 2023-12-21 12:50 | Outpatient (CLI) | payer MEDICARE, OTHER, SELFPAY ==
[2023-12-21 13:40] LABS: Alanine Aminotransferase 37 U/L (16-63); Albumin Level 3.9 g/dL (3.4-5.0); Alkaline Phosphatase 94 U/L (46-116); Anion Gap 11 mmol/L (4-12); Aspartate Amino Transferase 27 U/L (15-37); Bilirubin,Total 0.6 mg/dL (0.00-1.00); Blood Urea Nitrogen 39 mg/dL (7-18); Calcium 9.8 mg/dL (8.5-10.1); Carbon Dioxide 25 mmol/L (21-32); Chloride 103 mmol/L (98-108); Estimated Glomerular Filt Rate 35; Glucose 171 mg/dL (70-99); Osmolality Calculated 301 mOsm/kg (285-295); Sodium 139 mmol/L (136-145); Total Protein 7.1 g/dL (6.4-8.2)
[2023-12-21 13:41] LABS: Prostate Specific Antigen < 0.1 ng/mL (< OR = 4.0)
== END 2023-12-21 12:51 | disposition home or self-care (01) ==
LOC: CHSLAB 12:53
PROVIDERS: PCP Internal Medicine; Visit Provider Internal Medicine
DX: N28.9 Disorder of kidney and ureter, unspecified (principal); Z85.46 Personal history of malignant neoplasm of prostate
CPT/HCPCS: 36415; 80053; 84153

== ENCOUNTER 2023-12-25 12:44 | Outpatient (CLI) | payer MEDICARE, OTHER, SELFPAY ==
[2023-12-25 13:45] LABS: Alanine Aminotransferase 36 U/L (16-63); Alkaline Phosphatase 92 U/L (46-116); Anion Gap 11 mmol/L (4-12); Aspartate Amino Transferase 21 U/L (15-37); Bilirubin,Total 0.7 mg/dL (0.00-1.00); Blood Urea Nitrogen 41 mg/dL (7-18); Calcium 10.1 mg/dL (8.5-10.1); Carbon Dioxide 24 mmol/L (21-32); Chloride 103 mmol/L (98-108); Estimated Glomerular Filt Rate 36; Glucose 244 mg/dL (70-99); Osmolality Calculated 304 mOsm/kg (285-295); Potassium 5.1 mmol/L (3.5-5.1); Sodium 138 mmol/L (136-145); Total Protein 7.3 g/dL (6.4-8.2)
== END 2023-12-25 12:45 | disposition home or self-care (01) ==
LOC: CHSLAB 12:46
PROVIDERS: PCP Internal Medicine; Visit Provider Internal Medicine
DX: N17.9 Acute kidney failure, unspecified (principal)
CPT/HCPCS: 36415; 80053

== ENCOUNTER 2024-01-02 14:02 | Outpatient (CLI) | payer MEDICARE, OTHER, SELFPAY ==
--- NOTE | ~2024-01-02 | XR_ITS ---
Right Shoulder Technique: AP and scapular Y views were obtained. Clinical History: Palpable lump Findings: No fracture or dislocation is seen. Osseous alignment is anatomic. The glenohumeral and acr omioclavicular joints demonstrate mild degenerative change. There is soft tissue prominence superior to the AC joint. Impression: Soft tissue prominence superior to the AC joint. Underlying soft tissue mass or cyst could be present . Consider MR imaging for further evaluation. Underlying mild degenerative changes, as above. Reviewed, dictated and finalized at [facility]. Impression: Soft tissue prominence superior to the AC joint. Underlying soft tissue mass or cyst could be present. Consider MR imaging for further evaluation. Underlying mild degenerative changes, as above.
--- NOTE | ~2024-01-02 | XR_ITS ---
Lumbosacral Spine: AP and lateral views Clinical History: Pain Findings: There is levoscoliosis. There is 4 mm anterolisthesis of L3 over L4. There is severe degene rative disc narrowing at L1-L2, L4-L5, L5-S1. There is severe facet arthropathy throughout the lumbar spine. The sacroiliac joints are normally outlined. Impression: Advanced degenerative spondylosis. 4 mm anterolisthesis of L3 over L4. Levoscoliosis. Reviewed, dictated and finalized at location [facility]. Impression: Advanced degenerative spondylosis. 4 mm anterolisthesis of L3 over L4. Levoscoliosis.
--- NOTE | ~2024-01-02 | XR_ITS ---
AP and lateral views of the left hip Clinical history: Pain Findings: No acute fracture or dislocation is seen. Osseous alignment is anatomic. Left hip joint spa ce is preserved. Soft tissues are unremarkable. Impression: No significant abnormality is seen. Reviewed, dictated and finalized at location . Impression: No significant abnormality is seen.
[2024-01-02 15:13] LABS: Alanine Aminotransferase 41 U/L (16-63); Albumin Level 4.1 g/dL (3.4-5.0); Alkaline Phosphatase 113 U/L (46-116); Anion Gap 7 mmol/L (4-12); Aspartate Amino Transferase 28 U/L (15-37); Bilirubin,Total 0.5 mg/dL (0.00-1.00); Blood Urea Nitrogen 42 mg/dL (7-18); Calcium 10.5 mg/dL (8.5-10.1); Carbon Dioxide 27 mmol/L (21-32); Chloride 102 mmol/L (98-108); Estimated Glomerular Filt Rate 36; Glucose 177 mg/dL (70-99); Osmolality Calculated 296 mOsm/kg (285-295); Potassium 4.7 mmol/L (3.5-5.1); Sodium 136 mmol/L (136-145); Total Protein 7.5 g/dL (6.4-8.2)
== END 2024-01-02 14:03 | disposition home or self-care (01) ==
LOC: CHSLAB 14:04
PROVIDERS: PCP Internal Medicine; Visit Provider Internal Medicine
DX: M25.50 Pain in unspecified joint (principal); N18.9 Chronic kidney disease, unspecified; N17.8 Other acute kidney failure; M43.06 Spondylolysis, lumbar region; M41.86 Other forms of scoliosis, lumbar region
CPT/HCPCS: 36415; 72100; 73030; 73502; 80053

== ENCOUNTER 2024-01-05 07:36 | Outpatient (CLI) | payer MEDICARE, OTHER, SELFPAY ==
--- NOTE | ~2024-01-05 | MR_ITS ---
EXAMINATION: MR shoulder RT wo con DATE: 01/05/2024 10:56 INDICATION: Right shoulder mass TECHNIQUE: Magnetic resonance imaging (MRI) of the right shoulder was performed without intravenous c ontrast. Sequences included axial PD-weighted FS FSE, coronal oblique PD-weighted FS FSE, coronal obl ique T2-weighted FS FSE, sagittal PD-weighted FS FSE, and sagittal T1-weighted SE. COMPARISON: None. FINDINGS: Evaluation moderately limited by motion artifact most prominent on the sagittal and coronal fat-satur ated images. Coracoacromial arch: The acromion undersurface is curved in morphology (type II). Moderate sized anterior subacromial spur at the acromial insertion of the normal coracoacromial ligament. Moderate acromioclavicular osteoart hritis. Rotator cuff: Complete full-thickness tear of the supraspinatus and infraspinatus tendons. The posterior margin of the infraspinatus tendon remains tethered to the intact teres minor tendon. The ragged and attenuated bursal side of the supraspinatus tear margin is retracted 2.5 cm medially to the level of the apex o f the humeral head with the articular side of the tendon retracted additional 1 cm medially. There is severe tendinopathy and partial tear of the subscapularis tendon which appears to involve the majori ty the cephalad two thirds of the lesser tuberosity insertion. There are however frayed and lax appea ring likely torn tendon fibers extending towards the lesser tuberosity which limits assessment for th e true severity and extent of the tear. There is medial retraction and moderate fatty atrophy of the subscapularis, supraspinatus infraspinatus muscle belly suggesting cirrhosis chronic. Biceps tendon, glenoid labrum and glenohumeral cartilage: Long head of the biceps tendon is torn with the frayed and attenuated distal tear margin retracted be low the level of the intertubercular groove. Diffuse tearing of the glenoid labrum with thickened mac erated appearance of the superior labrum. There is subarticular cystic change along the adjacent supe rior to posterior rim of the glenoid. The majority of the articular cartilage appears relatively pres erved however assessment is significantly limited by the motion artifact. There appears be some parti al thickness cartilage loss along the apex of the humeral head. Fluid: Small glenohumeral joint effusion. There is however extensive fluid into the subacromial/subdeltoid b ursa, the subcoracoid bursa and deep subscapular recess. Fluid also extends into the acromioclavicula r joint space likely also supplying a large bilobed ganglion cyst along the dorsal margin of the dist al clavicle which measures 5.0 x 3.6 x 2.4 cm. No loose osteochondral bodies. Bones: There is cephalad subluxation of the humeral head with respect to glenoid with severe narrowing of th e subacromial space resulting from the rotator cuff tear. There is suggestion of some early remodelin g of the undersurface of the acromion. No fracture or pathologic marrow replacing process. IMPRESSION: 1. Chronic large full-thickness rotator cuff tear involving the supraspinatus and majority if not com plete infraspinatus tendons with severe tendinopathy and additional likely at least high-grade partia l tear of the subscapularis tendon. 2. 5.0 x 3.6 x 2.4 cm ganglion cyst dorsal to the lateral clavicle which likely accounts for the mass of concern. This likely results from the rotator cuff tear with extension of fluid from the glenoid humeral joint space through the subacromial/subdeltoid bursa and acromioclavicular joint. 3. Mild glenohumeral osteoarthritis with extensive degenerative tearing of the glenoid labrum. 4. Full-thickness tear and distal retraction of the long head biceps tendon. 5. Evaluation moderately limited by significant motion artifact. Reviewed, dictated and finalized at location [facility] Prit[facility]
== END 2024-01-05 07:37 | disposition home or self-care (01) ==
LOC: CHSIMG 07:39
PROVIDERS: PCP Internal Medicine; Visit Provider Internal Medicine
DX: R22.31 Localized swelling, mass and lump, right upper limb (principal); M75.101 Unspecified rotator cuff tear or rupture of right shoulder, not specified as traumatic; M67.411 Ganglion, right shoulder; M19.011 Primary osteoarthritis, right shoulder; S46.111A Strain of muscle, fascia and tendon of long head of biceps, right arm, initial encounter
CPT/HCPCS: 73221

== ENCOUNTER 2024-01-09 14:50 | Outpatient (CLI) | payer MEDICARE, OTHER, SELFPAY ==
[2024-01-09 16:11] LABS: Alanine Aminotransferase 33 U/L (16-63); Albumin Level 3.7 g/dL (3.4-5.0); Alkaline Phosphatase 97 U/L (46-116); Anion Gap 11 mmol/L (4-12); Aspartate Amino Transferase 24 U/L (15-37); Bilirubin,Total 0.5 mg/dL (0.00-1.00); Blood Urea Nitrogen 40 mg/dL (7-18); Calcium 9.8 mg/dL (8.5-10.1); Carbon Dioxide 23 mmol/L (21-32); Chloride 102 mmol/L (98-108); Estimated Glomerular Filt Rate 36; Glucose 235 mg/dL (70-99); Osmolality Calculated 299 mOsm/kg (285-295); Sodium 136 mmol/L (136-145); Total Protein 6.9 g/dL (6.4-8.2)
== END 2024-01-09 14:51 | disposition home or self-care (01) ==
LOC: CHSLAB 14:53
PROVIDERS: PCP Internal Medicine; Visit Provider Internal Medicine
DX: N17.9 Acute kidney failure, unspecified (principal)
CPT/HCPCS: 36415; 80053

== ENCOUNTER 2024-02-12 15:19 | Outpatient (CLI) | payer MEDICARE, OTHER, SELFPAY ==
[2024-02-12 15:33] LABS: Basophils Absolute Auto 0.04 K/mm3 (0.00-0.10); Basophils Percent Auto 0.5 % (0.0-1.0); Eosinophils Absolute Auto 0.15 K/mm3 (0.02-0.50); Eosinophils Percent Auto 1.9 % (1.0-6.0); Hematocrit 44.1 % (37.0-46.0); Hemoglobin 14.8 g/dL (12.4-15.3); Immature Granulocyte Absolute 0.05 K/mm3 (0.00-0.00); Immature Granulocyte Percent A 0.6 % (0.0-0.0); Lymphocytes Absolute Auto 2.07 K/mm3 (1.10-4.50); Lymphocytes Percent Auto 25.7 % (18.0-42.0); Mean Corpuscular HGB Conc 33.6 g/dL (32-36); Mean Corpuscular Volume 89.5 fL (78.0-102.0); Mean Platelet Volume 9.9 fl (8.7-11.0); Monocytes Absolute Auto 0.66 K/mm3 (0.10-0.90); Monocytes Percent Auto 8.2 % (2.0-11.0); Neutrophils Absolute Auto 5.09 K/mm3 (1.70-7.20); Neutrophils Percent Auto 63.1 % (50.0-70.0); Platelet Count Result 179 K/mm3 (150-420); Red Blood Count 4.93 M/mm3 (4.70-6.10); Red Cell Distribution Width 13.8 % (11.6-14.4); White Blood Count 8.1 K/mm3 (4.8-10.8)
[2024-02-12 15:58] LABS: Alanine Aminotransferase 39 U/L (16-63); Albumin Level 3.7 g/dL (3.4-5.0); Alkaline Phosphatase 135 U/L (46-116); Anion Gap 10 mmol/L (4-12); Aspartate Amino Transferase 26 U/L (15-37); Bilirubin,Total 0.4 mg/dL (0.00-1.00); Blood Urea Nitrogen 39 mg/dL (7-18); Calcium 10.9 mg/dL (8.5-10.1); Carbon Dioxide 25 mmol/L (21-32); Chloride 102 mmol/L (98-108); Estimated Glomerular Filt Rate 39; Glucose 169 mg/dL (70-99); Osmolality Calculated 297 mOsm/kg (285-295); Potassium 4.7 mmol/L (3.5-5.1); Sodium 137 mmol/L (136-145); Total Protein 7.8 g/dL (6.4-8.2)
[2024-02-12 16:08] LABS: CRP < 0.5 mg/dL (0.0-0.9)
[2024-02-12 18:22] LABS: Hemoglobin A1C 7.5 % (<5.7)
== END 2024-02-12 15:20 | disposition home or self-care (01) ==
LOC: CHSLAB 15:22
PROVIDERS: PCP Internal Medicine; Visit Provider Internal Medicine
DX: N18.30 Chronic kidney disease, stage 3 unspecified (principal); M13.0 Polyarthritis, unspecified; R73.01 Impaired fasting glucose
CPT/HCPCS: 36415; 80053; 83036; 85025; 86140

== ENCOUNTER 2024-02-13 10:29 | Outpatient (RCR) | payer MEDICARE, OTHER, SELFPAY ==
--- NOTE | 2024-02-13 11:43 | OPREHPOC ---
Outpatient Therapy Plan of Care This is a Multidisciplinary Plan of Care that may contain components documented by all disciplines (PT, OT, and ST.) PT Problem 1 PT Problem #1 Knowledge Deficit PT Goal 1 Goal / Goal Update The patient will be independent in a home exercise program. Target Visit 4 PT Problem 2 PT Problem #2 Pain PT Goal 1 Goal / Goal Update The patient will report no greater than 2/10 left knee pain with ambulation in the home and community. Target Visit 18 PT Problem 3 PT Problem #3 Impaired Range of Motion PT Goal 1 Goal / Goal Update 1. The patient will demonstrate 0 degrees left knee extension to normalize gait. 2. The patient will demonstrate 120 degrees left knee flexion to ascend/descend stairs reciprocally . Target Visit 18 PT Problem 4 PT Problem #4 Impaired Gait PT Goal 1 Goal / Goal Update 1. The patient will demonstrate no antalgia while ambulating 200 feet with the least restrictive assistive device. Target Visit 9 PT Problem 5 PT Problem #5 Impaired Functional Mobil PT Goal 1 Goal / Goal Update 1. The patient will demonstrate 30% or less self perceived disability per the LEFS. 2. The patient will be able to ambulate 1,200 feet during the 6 minute walk test to improve community ambulation. 3. The patient will demonstrate the ability to transfer sit to stand without using the UE demonstrating good functional LE strength. 4. The patient will be able to ascend/descend 10 stairs reciprocally to improve stair negotiation in the community. Target Visit 18
--- NOTE | 2024-02-13 11:44 | PTOPEVAL1 ---
Assessment and note entered by Shelbie Morton, PT Evaluation Information Assessment Status Evaluation Diagnosis s/p L TKA ICD-10 Condition Codes (PT) Pain in left knee M25.562 Onset 01/14/24 Subjective Information Griffin Roe reports he had a left total knee replacement on 01/14/24. He was bone on bone prior to surgery. He continues to have achiness at night and throbbing over the knee during the day. He was discharged to home after one night in the hospital and had home health PT. He was discharged from home health PT last week. He saw the surgeon last week and was told to just do exercises on his own. The patient wanted to come to PT so he went to his primary doctor and got a referral. He was using a walker until a few days ago he switched to using a cane. He still uses the walker in the house though. He has 2 steps to get into his house and has to take them one at a time. Reported Pain Level Pain Score 4: Self Report Assessment PT Clinical Summary Griffin Roe presents 4 weeks s/p L TKA. He is a reporting difficulty with bending and straightening his knee, walking, squatting, and stair negotiation. He objectively is demonstrating decreased left knee AROM, decreased left knee and hip strength, impaired gait, impaired balance, and decreased functional abilities. He will benefit from skilled PT to address these limitations. Plan of Care Interventions Electrical Stimulation,Gait Training,Hot Pack/Cold Pack,Intermittent Compression,Manual Therapy, Neuro Re-education,Patient/Caregiver Educati, Therapeutic Activities,Therapeutic Exercise PT Services Indicated Yes Treatment Frequency and 3 times a week for 18 visits Duration These treatments will address the objective and functional deficits as defined above. The patient will be advanced safely and appropriately in order for the patient to progress towards his/her prior level of function. Additional exercises will be introduced and as well as a comprehensive home exercise program upon discharge, if needed, ?to ensure carryover of functional gains achieved in the clinic. This treatment plan has been reviewed and agreement upon by the patient.
--- NOTE | 2024-02-29 09:54 | PCPTNOTE ---
Patient called & cancelled scheduled appointment this date due to [not sleeping well]
--- NOTE | 2024-03-10 08:58 | PTOPEVAL1 ---
Assessment and note entered by Jose Eduardo [facility] Evaluation Information Assessment Status Progress Diagnosis s/p L TKA ICD-10 Condition Codes (PT) Z47.1 Onset 01/14/24 Subjective Information Pt. reports he was limited this weekend due to pain. He reports that pain continue to fluctuate. Despite his continued pain, he does not that he has improved since beginning therapy. He states that he still notices some stiffness and would like to continue to improve the knee mobility. Reported Pain Level Pain Score 3: Self Report Assessment PT Clinical Summary Pt. has attended a total of 10 treatment sessions over a 4 week period. In this time ROM has progressed and pt. has been able to get away from the AD for short distance. He still struggles with intermittent edema and limited mobility, as well as abnormalities in gait despite his progress . We will continue with POC addressing remaining deficits to allow pt. 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 Plan of Care Interventions Gait Training,Hot Pack/Cold Pack,Manual Therapy, Neuro Re-education,Patient/Caregiver Educati, Therapeutic Activities,Therapeutic Exercise PT Services Indicated Yes Treatment Frequency and Continue treatment 3x/week x 8 visits Duration These treatments will address the objective and functional deficits as defined above. The patient will be advanced safely and appropriately in order for the patient to progress towards his/her prior level of function. Additional exercises will be introduced and as well as a comprehensive home exercise program upon discharge, if needed, ?to ensure carryover of functional gains achieved in the clinic. This treatment plan has been reviewed and agreement upon by the patient.
--- NOTE | 2024-03-27 09:09 | OPREHPOC ---
Outpatient Therapy Plan of Care This is a Multidisciplinary Plan of Care that may contain components documented by all disciplines (PT, OT, and ST.) PT Problem 1 PT Problem #1 Knowledge Deficit PT Goal 1 Goal / Goal Update The patient will be independent in a home exercise program. Target Visit 4 Progress Met PT Problem 2 PT Problem #2 Pain PT Goal 1 Goal / Goal Update The patient will report no greater than 2/10 left knee pain with ambulation in the home and community. Target Visit 18 Progress Met PT Problem 3 PT Problem #3 Impaired Range of Motion PT Goal 1 Goal / Goal Update 1. The patient will demonstrate 0 degrees left knee extension to normalize gait. -partially met (met for passive not active) 2. The patient will demonstrate 120 degrees left knee flexion to ascend/descend stairs reciprocally . -not met Target Visit 18 Progress Partially Met PT Goal 2 Goal / Goal Update continue 1 and 2 PT Problem 4 PT Problem #4 Impaired Gait PT Goal 1 Goal / Goal Update 1. The patient will demonstrate no antalgia while ambulating 200 feet with the least restrictive assistive device. Target Visit 9 Progress Partially Met PT Goal 2 Goal / Goal Update continue PT Problem 5 PT Problem #5 Impaired Functional Mobil PT Goal 1 Goal / Goal Update 1. The patient will demonstrate 30% or less self perceived disability per the LEFS. -not met 2. The patient will be able to ambulate 1,200 feet during the 6 minute walk test to improve community ambulation. -not met 3. The patient will demonstrate the ability to transfer sit to stand without using the UE demonstrating good functional LE strength. -met 4. The patient will be able to ascend/descend 10 stairs reciprocally to improve stair negotiation in the community. -not met Target Visit 18 Progress Not Met PT Goal 2 Goal / Goal Update continue 1, 2, and 4
--- NOTE | 2024-03-27 09:09 | PTOPPROG ---
Assessment and note entered by Shelbie Morton, PT Evaluation Information Assessment Status Progress Diagnosis s/p L TKA ICD-10 Condition Codes (PT) Z47.1 Other ICD-10 Condition Codes ( Z47.1 PT) Onset 01/14/24 Subjective Information Griffin Roe reports his left knee is getting better overall but he still notes stiffness first thing in the morning as well as mild pain around the knee cap. He notes the burning pain he had before has subsided. 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 He still has difficulty going up and down stairs noting he has to take them one at a time. He also still has difficulty walking on uneven terrain. He would like to continue skilled PT to regain more motion and improve strength to perform all previous activities without difficulty. Assessment PT Clinical Summary Griffin Roe has completed 18 skilled PT visits following a left total knee arthroplasty. He is reporting ongoing stiffness in the left knee as well as mild pain around the patella. He continues to have difficulty getting his knee extended fully and he has to take stairs one at a time. He is demonstrating steady progress in left knee active and passive ROM as well as left LE strength . He is able to achieve 0 degrees left knee extension passively but just achieved this on 03/25 for the first time. He is still unable to achieve full left knee extension ROM actively. He continues to have deficits in left knee flexion active and passive ROM as well. His ROM limitations are leading to decreased ability to navigate stairs and impaired gait. He also continues to have functional strength deficits in the left LE and impaired gait. He will continue to benefit from skilled PT to continue to address these limitations and return him to his PLOF. Plan of Care Interventions Electrical Stimulation,Hot Pack/Cold Pack,Manual Therapy,Neuro Re-education,Therapeutic Activities, Therapeutic Exercise PT Services Indicated Yes Treatment Frequency and 2 times a week for 8 visits Duration These treatments will address the objective and functional deficits as defined above. The patient will be advanced safely and appropriately in order for the patient to progress towards his/her prior level of function. Additional exercises will be introduced and as well as a comprehensive home exercise program upon discharge, if needed, ?to ensure carryover of functional gains achieved in the clinic. This treatment plan has been reviewed and agreement upon by the patient.
--- NOTE | 2024-04-24 09:13 | PTOPDC ---
Assessment and note entered by Shelbie Morton, PT Evaluation Information Assessment Status Discharge Diagnosis s/p L TKA ICD-10 Condition Codes (PT) Pain in left knee M25.562 Other ICD-10 Condition Codes ( Z47.1 PT) Onset 01/14/24 Subjective Information Griffin reports his left knee is still sore and has burning on top of the knee. He feels he needs a break from PT and that may be contributing to his knee soreness. He reports he is not stretching at home. 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 He is still taking stairs one at a time. Reported Pain Level Pain Score 2: Self Report Assessment PT Clinical Summary Griffin Roe has completed 25 skilled PT visits for left knee pain following a total knee replacement on 01/14/24. He is reporting soreness and burning pain in the left knee and notes he still takes stairs one at a time. He has not been compliant with home exercises and has made minimal progress with left knee ROM. He continues to have decreased flexion active and passive ROM as well as slightly decreased extension AROM leading to inability to navigate stairs reciprocally and altered gait. He is demonstrating improved knee ROM, improved LE strength, improved gait, and improved balance overall. He has returned to most of previous activities. He will be discharged per his request. He was educated on importance of continuing home exercises. Plan of Care PT Services Indicated No
== END 2024-04-24 10:57 | disposition home or self-care (01) ==
LOC: CHSPT 10:29
PROVIDERS: PCP Internal Medicine; Visit Provider Internal Medicine
DX: Z47.1 Aftercare following joint replacement surgery (principal); M19.90 Unspecified osteoarthritis, unspecified site; Z96.652 Presence of left artificial knee joint
CPT/HCPCS: 97014; 97110; 97112; 97150; 97161; 97530; 97750; G0283

== ENCOUNTER 2024-03-11 14:44 | Outpatient (CLI) | payer MEDICARE, SELFPAY ==
[2024-03-11 15:33] LABS: Add Urine Microscopic? NO; Appearance Urine Clear (Clear); Bilirubin Urine Negative (Negative); Blood Urine Negative (Negative); Color Urine Light Yellow (Yellow); Glucose Urine UA 3+ (Negative); Ketones Urine Negative (Negative); Leukocyte Esterase Ur Negative (Negative); Nitrate Urine Negative (Negative); Protein Urine Negative (Negative); Urobilinogen Urine 0.2 mg/dL (0.2-1.0); pH Urine 5.5 (5.0-8.0)
[2024-03-11 16:00] LABS: Creatinine Urine 66.94 mg/dL (40-278); Total Protein Urine Random 8.7 mg/dL (0.0-11.9); Ur Ttl Prot Creatinine Ratio 0.13 mg/mg (0-0.20)
[2024-03-11 16:12] LABS: Hematocrit 44.8 % (37.0-46.0); Hemoglobin 15.3 g/dL (12.4-15.3); Mean Corpuscular HGB Conc 34.2 g/dL (32-36); Mean Corpuscular Hemoglobin 30.3 pg (27.0-31.0); Mean Corpuscular Volume 88.7 fL (78.0-102.0); Platelet Count Result 170 K/mm3 (150-420); Red Blood Count 5.05 M/mm3 (4.70-6.10); Red Cell Distribution Width 14.4 % (11.6-14.4)
[2024-03-11 16:15] LABS: Albumin Level 3.7 g/dL (3.4-5.0); Anion Gap 11 mmol/L (4-12); Blood Urea Nitrogen 38 mg/dL (7-18); Calcium 9.5 mg/dL (8.5-10.1); Carbon Dioxide 23 mmol/L (21-32); Chloride 100 mmol/L (98-108); Creatine Kinase 24 U/L (39-308); Estimated Glomerular Filt Rate 35; Glucose 387 mg/dL (70-99); Osmolality Calculated 303 mOsm/kg (285-295); Phosphorus 3.7 mg/dL (2.6-4.7); Potassium 4.5 mmol/L (3.5-5.1); Sodium 134 mmol/L (136-145)
[2024-03-11 16:17] LABS: Erythrocyte Sedimentation Rate 10 mm/hr (0-20)
[2024-03-12 14:49] LABS: Complement Total CH50 >60 U/mL (31-60)
[2024-03-12 17:34] LABS: Parathyroid Intact 84 pg/mL (16-77)
[2024-03-13 07:58] LABS: Anti Nuclear Antibody Pattern Nuclear, Homogeneous; Anti Nuclear Antibody Titer 1:40 titer
[2024-03-13 14:53] LABS: Complement C3 134 mg/dL (82-185)
[2024-03-17 19:29] LABS: Immunofixation, Serum Normal pattern.
[2024-03-17 23:48] LABS: Parathyroid Hormone Related Pr 10 pg/mL (11-20)
[2024-03-18 16:29] LABS: Kappa\\Lambda Light Chains 1.42 (0.26-1.65); Lambda Light Chain 22.3 mg/L (5.7-26.3)
== END 2024-03-11 14:45 | disposition home or self-care (01) ==
LOC: CHSLAB 14:45
PROVIDERS: PCP Internal Medicine; Visit Provider Internal Medicine Nephrology
DX: N18.32 Chronic kidney disease, stage 3b (principal); G47.39 Other sleep apnea
CPT/HCPCS: 36415; 80069; 81003; 82550; 82570; 83519; 83883; 83970; 84156; 85027; 85652; 86038; 86039; 86160; 86162; 86334

== ENCOUNTER 2024-03-13 08:42 | Outpatient (CLI) | payer MEDICARE, OTHER, SELFPAY ==
[2024-03-15 21:16] LABS: Reference Lab Test Name UREA NITROGEN 24H UR
[2024-03-18 13:44] LABS: Pro/Creat Ratio 156 mg/g creat (<100); Pro/Creat Ratio mg/mg 0.156 (<0.100); Protein,total, 24 Hr Ur 217 mg/24 h (<150)
[2024-03-27 09:43] LABS: Albumin 100 %
== END 2024-03-13 08:43 | disposition home or self-care (01) ==
PROVIDERS: PCP Internal Medicine; Visit Provider Internal Medicine Nephrology
DX: N18.32 Chronic kidney disease, stage 3b (principal)
CPT/HCPCS: 36415; 81050; 84540; 86335

== ENCOUNTER 2024-03-14 13:18 | Outpatient (CLI) | payer MEDICARE, SELFPAY ==
[2024-03-14 13:30] LABS: Basophils Absolute Auto 0.06 K/mm3 (0.00-0.10); Basophils Percent Auto 0.7 % (0.0-1.0); Eosinophils Absolute Auto 0.12 K/mm3 (0.02-0.50); Eosinophils Percent Auto 1.4 % (1.0-6.0); Hematocrit 48.3 % (37.0-46.0); Hemoglobin 15.9 g/dL (12.4-15.3); Immature Granulocyte Absolute 0.08 K/mm3 (0.00-0.00); Immature Granulocyte Percent A 0.9 % (0.0-0.0); Lymphocytes Absolute Auto 2.25 K/mm3 (1.10-4.50); Mean Corpuscular HGB Conc 32.9 g/dL (32-36); Mean Corpuscular Hemoglobin 29.7 pg (27.0-31.0); Mean Corpuscular Volume 90.1 fL (78.0-102.0); Monocytes Absolute Auto 0.74 K/mm3 (0.10-0.90); Monocytes Percent Auto 8.6 % (2.0-11.0); Neutrophils Absolute Auto 5.39 K/mm3 (1.70-7.20); Neutrophils Percent Auto 62.4 % (50.0-70.0); Platelet Count Result 182 K/mm3 (150-420); Red Blood Count 5.36 M/mm3 (4.70-6.10); Red Cell Distribution Width 14.4 % (11.6-14.4); White Blood Count 8.6 K/mm3 (4.8-10.8)
[2024-03-14 14:10] LABS: Alanine Aminotransferase 37 U/L (16-63); Albumin Level 3.8 g/dL (3.4-5.0); Alkaline Phosphatase 132 U/L (46-116); Anion Gap 10 mmol/L (4-12); Aspartate Amino Transferase 23 U/L (15-37); Bilirubin,Total 0.7 mg/dL (0.00-1.00); Blood Urea Nitrogen 33 mg/dL (7-18); Calcium 10.2 mg/dL (8.5-10.1); Carbon Dioxide 28 mmol/L (21-32); Chloride 102 mmol/L (98-108); Estimated Glomerular Filt Rate 36; Glucose 244 mg/dL (70-99); Osmolality Calculated 305 mOsm/kg (285-295); Potassium 4.9 mmol/L (3.5-5.1); Sodium 140 mmol/L (136-145); Total Protein 7.5 g/dL (6.4-8.2)
[2024-03-14 14:11] LABS: CRP < 0.5 mg/dL (0.0-0.9)
== END 2024-03-14 13:19 | disposition home or self-care (01) ==
LOC: CHSLAB 13:20
PROVIDERS: PCP Internal Medicine; Visit Provider Internal Medicine
DX: R79.89 Other specified abnormal findings of blood chemistry (principal); E83.52 Hypercalcemia
CPT/HCPCS: 36415; 80053; 85025; 86140

== ENCOUNTER 2024-03-18 09:54 | Outpatient (CLI) | payer MEDICARE, OTHER, SELFPAY ==
--- NOTE | ~2024-03-18 | US_ITS ---
EXAMINATION: US renal BI DATE: 03/18/2024 10:28 INDICATION: Stage IIIB chronic kidney disease TECHNIQUE: Multiple ultrasound grayscale images of the kidneys were obtained. COMPARISON: None. FINDINGS: The right kidney measures 10.6 x 4.3 x 5.7 cm. The left kidney measures 9.6 x 4.7 x 5.6 cm. The kidne ys demonstrate normal echogenicity. There are multiple bilateral anechoic renal cysts the largest on the right measuring 2.8 cm and the largest on the left measuring 4.3 cm. There is no hydronephrosis i n either kidney. No stones identified. The bladder is normal. IMPRESSION: 1. A few bilateral renal cysts. Otherwise normal kidneys with no hydronephrosis. Reviewed, dictated and finalized at location [facility]. IMPRESSION: 1. A few bilateral renal cysts. Otherwise normal kidneys with no hydronephrosi s.
[2024-03-18 11:02] LABS: Rheumatoid Factor Screen Negative (Negative)
[2024-03-18 11:18] LABS: Erythrocyte Sedimentation Rate 4 mm/hr (0-20)
[2024-03-19 14:39] LABS: Anti Glomerular Basement Memb <1.0 AI
[2024-03-20 15:14] LABS: SM Antibody <1.0 NEG AI (<1.0 NEG); SM/RNP Antibody <1.0 NEG AI (<1.0 NEG)
[2024-03-20 15:14] LABS: SS-A <1.0 NEG AI (<1.0 NEG); SS-B <1.0 NEG AI (<1.0 NEG)
[2024-03-21 10:33] LABS: ANCA Screen NEGATIVE (NEGATIVE)
[2024-03-25 19:14] LABS: Cryoglobulin, QL Negative (Negative)
== END 2024-03-18 09:55 | disposition home or self-care (01) ==
PROVIDERS: PCP Internal Medicine; Visit Provider Internal Medicine Nephrology
DX: R76.0 Raised antibody titer (principal); N18.32 Chronic kidney disease, stage 3b; N28.1 Cyst of kidney, acquired
CPT/HCPCS: 36415; 76775; 82595; 83520; 85652; 86036; 86038; 86039; 86225; 86235; 86430

== ENCOUNTER 2024-07-10 08:57 | Outpatient (CLI) | payer MEDICARE, OTHER, SELFPAY ==
--- NOTE | ~2024-07-10 | MR_ITS ---
EXAMINATION: MR lumbar spine wo con DATE: 07/10/2024 09:36 INDICATION: Spinal stenosis. TECHNIQUE: Magnetic resonance imaging (MRI) of the lumbar spine was performed without intravenous con trast. Sequences included sagittal T2-weighted FSE, sagittal T2-weighted FS FSE, sagittal T1-weighted FSE, and axial T2-weighted FSE. COMPARISON: Lumbar spine MRI 11/05/2013, radiographs 01/02/2024 FINDINGS: There is 18 degrees levoscoliosis of lumbar spine. There is 6 mm retrolisthesis of L1 on L2 and 5 mm anterolisthesis of L3 on L4. There is mild chronic anterior wedging of T11 and T12 vertebra l bodies. There is moderately decreased disc height at T11-T12, mildly decreased disc height at T12-L 1, severely decreased disc height at L1-L2, mildly decreased disc height at L2-L3, moderately decreas ed disc height at L3-L4, and severely decreased disc height at L4-L5 and L5-S1. There is ligamentum f lavum hypertrophy at the disc levels from L1-L2 through L5-S1. The distal spinal cord signal intensit y is normal. The conus medullaris is at L1. The following disc levels are specifically discussed: L1-L2: The disc is bulging and has an annular fissure. There is moderate bilateral facet joint osteoa rthritis. There is moderate bilateral neural foraminal stenosis. There is mild central canal stenosis . L2-L3: The disc is bulging and has an annular fissure. There is severe bilateral facet joint osteoart hritis. There is mild bilateral neural foraminal stenosis. There is mild central canal stenosis. L3-L4: The disc is bulging and has an annular fissure. There is severe bilateral facet joint osteoart hritis. There is mild bilateral neural foraminal stenosis. There is moderate central canal stenosis. L4-L5: The disc is bulging and has an annular fissure. There is severe bilateral facet joint osteoart hritis. There is moderate bilateral neural foraminal stenosis. There is moderate central canal stenos is. L5-S1: The disc is bulging and has an annular fissure. There is mild right and moderate left facet davina int osteoarthritis. There is mild right and moderate left neural foraminal stenosis. There is mild ce ntral canal stenosis. IMPRESSION: 1. Severe lumbar spondylosis, worsened from 11/05/2013. 2. Lumbar levoscoliosis. Reviewed, dictated and finalized at location B. [employer]
[2024-07-10 15:13] LABS: Hematocrit 46.8 % (37.0-46.0); Hemoglobin 15.7 g/dL (12.4-15.3); Mean Corpuscular HGB Conc 33.5 g/dL (32-36); Mean Corpuscular Hemoglobin 30.4 pg (27.0-31.0); Mean Corpuscular Volume 90.5 fL (78.0-102.0); Mean Platelet Volume 9.8 fl (8.7-11.0); Platelet Count Result 154 K/mm3 (150-420); Red Blood Count 5.17 M/mm3 (4.70-6.10); Red Cell Distribution Width 14.3 % (11.6-14.4); White Blood Count 7.9 K/mm3 (4.8-10.8)
[2024-07-10 15:36] LABS: Anion Gap 10 mmol/L (4-12); Blood Urea Nitrogen 40 mg/dL (7-18); Calcium 9.9 mg/dL (8.5-10.1); Carbon Dioxide 24 mmol/L (21-32); Chloride 104 mmol/L (98-108); Estimated Glomerular Filt Rate 43; Glucose 252 mg/dL (70-99); Osmolality Calculated 304 mOsm/kg (285-295); Phosphorus 3.2 mg/dL (2.6-4.7); Sodium 138 mmol/L (136-145); Uric Acid 4.7 mg/dL (3.5-7.2)
--- OUTSIDE RECORDS SUMMARY | 2024-07-11 04:00 | XMS_ITS ---
Author Organization Unknown Address [address] [place] [phone] Phone Care Team Providers Care Spring Setter Name Role Phone CRISSY CHAUDHARY Attending Unavailable KAREN GUILLAUME Primary Unavailable Results US ECHO W/ COLOR - Completed : 12/25/2023 10:48 LOINC: See Scanned Image Attachment for Report Dictated By: Trans Initials: BG Trans Date: 12/25/23 15:37 <<REPDIST>> Social History Type Status Start Date End Date Code Code Syst em Sex Male Hospital Discharge Instructions Should you have any questions prior to discharge, please contact a member of your healthcare team. If you have left the hospital and have any questions, please contact your primary care physician. Reason For Referral No Data Found Plan of Treatment US Echo With Color ([id number]) 12/25/2023 Encounters Encounter Diagnosis Start Date Code Code Sys tem Pre-surgery evaluation 12/25/2023 [id number] [facility] D-CT Personal Care Team Section Performer Name Performer Role Active Date Inactive Da te AUNDREA JONES PCP - Primary care physician 2023-12-14 Imaging Narrative Notes [facility] 12/25/2023 15:[address] [address] RADIOLOGY REPORT Patient Number: [id number] Patient Name: TRACI Hickey Type: O/P MR Number: [id number] : 1945 Age: 78 Sex: M Room #: Admit Date: 12/25/23 Discharge Date 12/25/23 Ordering Physician: CRISSY CHAUDHARY Family Physician: KAREN Servin Physician: X-Ray Number : [id number] US ECHO W/ COLOR [id number] COMPLETE:12/25/23 10:48 ASL [id number] (REASON-ECHO COMPLTE: CHEST PAIN See Scanned Image Attachment for Report Dictated By: Barbara Initials: BG Jimenez Date: 12/25/23 15:37 <<REPDIST>>
[2024-07-11 13:43] LABS: Parathyroid Intact 79 pg/mL (16-77)
== END 2024-07-10 08:58 | disposition home or self-care (01) ==
PROVIDERS: Internal Medicine Nephrology; PCP Internal Medicine; Visit Provider Internal Medicine
DX: N18.32 Chronic kidney disease, stage 3b (principal); M10.9 Gout, unspecified; G47.39 Other sleep apnea; M48.00 Spinal stenosis, site unspecified; M43.06 Spondylolysis, lumbar region; M41.86 Other forms of scoliosis, lumbar region
CPT/HCPCS: 36415; 72148; 80069; 83970; 84550; 85027

== ENCOUNTER 2024-09-24 11:19 | Outpatient (CLI) | payer MEDICARE, OTHER, SELFPAY ==
--- NOTE | 2024-09-24 11:29 | ECG_ITS ---
Test Date: 2024-09-24 11:47:32 Measurements Intervals [place] Rate: 60 P: 62 RI: 212 QRS: -44 QRSD: 142 T: 58 QT: 416 QTc: 416 Interpretive Statements SINUS RHYTHM WITH FIRST DEGREE AV BLOCK LEFT AXIS DEVIATION INTRAVENTRICULAR CONDUCTION DELAY BASELINE WANDER- V1-V3 BORDERLINE ECG No previous ECG available for comparison Electronically Signed On 09-24-2024 11:56:05 CDT by Waqas Yeh D.O.
--- OUTSIDE RECORDS SUMMARY | 2024-09-24 13:05 | XMS_ITS | Referral Summary ---
Author Organization [facility] Address [address] [place] [address] Care Team Providers Care Traffic Rate Clerk Name Role Phone Satish Castano MD Primary Care Provider [phone] Encounters Date Type Department Care Team Description 09/23/2024 2:07 PM CDT - 09/23/2024 11:59 PM CDT Hospital [facility]counter [facility] [address] [place] [phone] Carina Matias MD Lumbar radiculopathy Discharge Disposition: Discharge to home or self care 08/27/2024 Telephone [facility] [address], [address] [place] [address] Carina Matias MD 08/19/2024 Orders Only [facility] [address], [address] [place] [address] Carina Matias MD Lumbar radiculopathy (Primary Dx) 08/19/2024 Telephone [facility] [address], [address] [place] [phone] Carina Matias MD POST CALL 08/05/2024 7:25 PM TYPEWRITER OPERATOR AUTOMATIC - 08/05/2024 11:59 PM TYPEWRITER OPERATOR AUTOMATIC Hospital Encounter [facility] [address] [address], [place] [address] Discharge Disposition: Discharge to home or self care 08/05/2024 7:24 PM TYPEWRITER OPERATOR AUTOMATIC - 08/05/2024 11:59 PM TYPEWRITER OPERATOR AUTOMATIC Hospital Encounter [facility] [address] [address], [place] [address] Discharge Disposition: Discharge to home or self care 08/05/2024 7:24 PM TYPEWRITER OPERATOR AUTOMATIC - 08/05/2024 11:59 PM TYPEWRITER OPERATOR AUTOMATIC Hospital Encounter [facility] [address] [address], [place] [address] Discharge Disposition: Discharge to home or self care 08/05/2024 Telephone [facility] [address], [address] [place], [place] [phone] Carina Matias MD outside images 08/05/2024 12:42 PM TYPEWRITER OPERATOR AUTOMATIC - 08/05/2024 11:59 PM TYPEWRITER OPERATOR AUTOMATIC Hospital Encounter [facility] [address], [address] [place], [place] [address] Carina Matias MD Lumbar radiculopathy (Primary Dx); Low back pain, unspecified back pain laterality, unspecified chronicity, unspecified whether sciatica present Discharge Disposition: Discharge to home or self care 07/17/2024 Telephone [facility] [address], [address] [place] [phone] Carina Matias MD Earlier appt? 07/14/2024 Telephone [facility] [address], [address] [place], [place] [phone] Ghazala Cole, AMISH PMC Intake Assessment from Last 3 Months Allergies No known active allergies Medications aspirin 81 mg enteric coated tablet 06/07/2007 Active cbbo-mqcvsi-kqg etwvp-E2-B-Mn (Glucosamine-Ch ondr-D3, C-jessy,) 500-400-667 mg-mg-unit capsule 06/07/2007 Active allopurinoL (ZYLOPRIM) 100 mg tablet Take 1 tablet (100 mg total) by mouth daily 06/07/2007 Active lisinopriL (PRINIVIL,ZESTR IL) 40 mg tablet Take 1 tablet (40 mg total) by mouth daily 05/20/2019 Active lovastatin (MEVACOR) 40 mg tablet Take 1 tablet (40 mg total) by mouth daily 06/07/2007 Active metoprolol XL (TOPROL-XL) 25 mg 24 hr tablet Take 1 tablet (25 mg total) by mouth daily 05/01/2019 Active multivitamin tablet 06/07/2007 Active omega-3 fatty acids-fish oil 300-1,000 mg capsule Take 2 capsules (2 g total) by mouth daily Active acetaminophen (TYLENOL) 500 mg tablet 2 tablet 3 TIMES DAILY (route: oral) 01/26/2024 Active Farxiga 10 mg tablet Take 1 tablet (10 mg total) by mouth every morning Active insulin degludec (TRESIBA) 100 unit/mL (3 mL) pen for injection 30 unit BEDTIME (route: subcutaneous) 01/16/2024 Active pregabalin (LYRICA) 75 mg capsule Take 1 capsule (75 mg total) by mouth 2 (two) times a day 07/07/2024 Active Active Problems Problem Noted Date Diagnosed Date Lumbar radiculopathy 09/23/2024 Primary osteoarthritis of both knees 05/28/2019 Prostate cancer 09/17/2018 Carpal tunnel syndrome 06/19/2017 Social History Tobacco Use Types Packs/Day Years Used Date Smoking Tobacco: Never Tobacco Cessation:Counseling Given: Not Answered AUDIT-C Answer Date Recorded Q1: How often do you have a drink containing alcohol? Never 09/23/2024 Q2: How many drinks containi ng alcohol do you have on a typical day when you are drinking? Patient does not drink Q3: How often do you have si x or more drinks on one occasion? Never 09/23/2024 Sex and Gender Information Value Date Recorded Sex Assigned at Not on file Legal Sex Male 2:24 AM TYPEWRITER OPERATOR AUTOMATIC Gender Identity Not on file Sexual Orientation Not on file Last Filed Vital Signs Vital Sign Reading Time Taken Comments Blood Pressure 150/64 09/23/2024 3:22 PM CDT Pulse 43 09/23/2024 3:22 PM CDT Temperature 35.8 C (96.4 F) 09/23/2024 2:11 PM CDT Respiratory Rate 16 09/23/2024 3:22 PM CDT Oxygen Saturation 97% 09/23/2024 3:22 PM CDT Inhaled Oxygen Concentration - - Weight 86.2 kg (190 lb) 09/23/2024 2:11 PM CDT Height 172.7 cm (5' 8 ) 09/23/2024 2:11 PM CDT Body Mass Index 28.89 09/23/2024 2:11 PM CDT Plan of Treatment Not on file Goals Goal Patient Goal Type Associated Problems Recent Progress Patient-Stated? Author CCM Chronic Pain Care Plan Chronic Care Management No Natalie Plasencia RN Note: Problem: Chronic Pain Goals: 1. Minimize further functional decline 2. Maximize quality of life 3. Control pain Strategies: - Activity/exercise program recommendation - Conservative stepwise pain medicine strategy with multi-disciplinary approach - Recommend healthy lifestyle strategies and compensatory methods as needed Reduce the likelihood of falling Lifestyle No Natalie Plasencia RN Note: Below are four things you can do to prevent falls: Begin an exercise program to improve your leg strength & balance Ask your doctor or pharmacist to review your medicines Get annual eye check-ups & update your eyeglasses Make your home safer by: Removing clutter & tripping hazards Putting railings on all stairs & adding grab bars in the bathroom Having good lighting, especially on stairs Contact your local community or senior center for information on exercise, fall prevention programs, or options for improving home safety. Procedures Procedure Name Priority Date/Time Associated Diagnosis Comments PAIN MGMT IMAGING LUMBAR/CAUDAL EPIDURAL STEROID INJ Schedule Routine, Read Routine (OP Routine) 09/23/2024 3:18 PM CDT Lumbar radiculopathy XR TRANSFER OF OUTSIDE FILMS Routine 08/05/2024 7:25 PM TYPEWRITER OPERATOR AUTOMATIC XR TRANSFER OF OUTSIDE FILMS Routine 08/05/2024 7:24 PM TYPEWRITER OPERATOR AUTOMATIC NEURO MR OUTSIDE REFERENCE Routine 08/05/2024 7:24 PM TYPEWRITER OPERATOR AUTOMATIC PAIN MGMT IMAGING LUMBAR/SACRAL SELECTIVE NERVE ROOT INJ (TFE) LEFT Schedule Routine, Read Routine (OP Routine) 08/05/2024 2:12 PM TYPEWRITER OPERATOR AUTOMATIC Lumbar radiculopathy from Last 3 Months Results * Imaging Lumbar/Caudal Epidural Steroid INJ ([id number]) (09/23/2024 3:18 PM CDT) Narrative RAD_PACS_[facility] - 09/23/2024 3:18 PM CDT The images from this study are not interpreted by Radiology. Please refer to the physician's procedure / OR operative note. Carina Matias MD IM PAIN MGMT PROCEDURES F inal Result Performing Organization Address [facility] Co de Phone Number RAD_PACS_[facility] * XR Outside Reference (08/05/2024 7:25 PM TYPEWRITER OPERATOR AUTOMATIC) Impressions RAD_PACS[facility] - 08/05/2024 7:25 PM TYPEWRITER OPERATOR AUTOMATIC These images are for Reference purposes only and have not been reviewed by [facility] Radiology. There will be no report generated by a [facility] Radiologist. Narrative RAD_PACS_[facility] - 08/05/2024 7:25 PM TYPEWRITER OPERATOR AUTOMATIC EXAMINATION: Images For Reference Purposes Only Carina Matias MD IMG XR PROCEDURES Final Re sult Performing Organization Address [facility] Co de Phone Number RAD_PACS_[facility] * Neuro MR Outside Reference (08/05/2024 7:24 PM TYPEWRITER OPERATOR AUTOMATIC) Impressions RAD_[facility]ACS[facility] - 08/05/2024 7:24 PM TYPEWRITER OPERATOR AUTOMATIC These images are for Reference purposes only and have not been reviewed by [facility] Radiology. There will be no report generated by a [facility] Radiologist. Narrative RAD_PACS_[facility] - 08/05/2024 7:24 PM TYPEWRITER OPERATOR AUTOMATIC EXAMINATION: Images For Reference Purposes Only Carina Matias MD IMG MRI PROCEDURES Final R esult Performing Organization Address [facility] de Phone Number RAD_PACS_[facility] * XR Outside Reference (08/05/2024 7:24 PM TYPEWRITER OPERATOR AUTOMATIC) Impressions RAD_[facility]ACS[facility] - 08/05/2024 7:24 PM TYPEWRITER OPERATOR AUTOMATIC These images are for Reference purposes only and have not been reviewed by [facility] Radiology. There will be no report generated by a [facility] Radiologist. Narrative RAD_PACS_[facility] - 08/05/2024 7:24 PM TYPEWRITER OPERATOR AUTOMATIC EXAMINATION: Images For Reference Purposes Only Carina Matias MD IMG XR PROCEDURES Final Re sult Performing Organization Address [facility] de Phone Number RAD_PACS_[facility] * Imaging Lumbar/Sacral Selective Nerve Root INJ (TFE) Left ([id number]) (08/05/2024 2:12 PM TYPEWRITER OPERATOR AUTOMATIC) Narrative RAD_PACS[facility] - 08/05/2024 2:12 PM TYPEWRITER OPERATOR AUTOMATIC The images from this study are not interpreted by Radiology. Please refer to the physician's procedure / OR operative note. Carina Matias MD IMG PAIN MGMT PROCEDURES F inal Result Performing Organization Address [facility] de Phone Number RAD_PACS_[facility] from Last 3 Months Insurance [employer] [facility] HMO MEDICARE [facility] MEDICARE [facility]IC[facility] Care Teams Traffic Rate Clerk Relationship Specialty Start Date End Date Satish Castano MD PCP - General Internal Medicine 01/18/21
--- OUTSIDE RECORDS SUMMARY | 2024-09-24 13:05 | XMS_ITS | Clinical Summary ---
Author Organization [facility] Address [address] [place] [address] Care Team Providers Care Painter Ordnance Name Role Phone Satish Castano MD Primary Care Provider [phone] Allergies No known active allergies Medications aspirin 81 mg enteric coated tablet 06/07/2007 Active tfsn-zvipwe-rop uglap-W7-J-Mn (Glucosamine-Ch ondr-D3, C-jessy,) 500-400-667 mg-mg-unit capsule 06/07/2007 [...] Prostate cancer 09/17/2018 Carpal tunnel syndrome 06/19/2017 Encounters Date Type Department Care Team Description 09/23/2024 2:07 PM CDT - 09/23/2024 11:59 PM CDT Hospital Encounter [facility] [address], [address] [place] [phone] Carina Matias MD Lumbar radiculopathy Discharge Disposition: Discharge to home or self care 08/27/2024 Telephone [facility] [address], [address] [place] [address] Carina Matias MD 08/19/2024 Orders Only [facility] [address] [place] [address] Carina Matias MD Lumbar radiculopathy (Primary Dx) 08/19/2024 Telephone [facility] [address] [place] [address] Carina Matias MD POST CALL 08/05/2024 7:25 PM SCENIC ARTS SUPERVISOR - 08/05/2024 11:59 PM SCENIC ARTS SUPERVISOR Hospital Encounter [facility] [address] [place] [address] Discharge Disposition: Discharge to home or self care 08/05/2024 7:24 PM SCENIC ARTS SUPERVISOR - 08/05/2024 11:59 PM SCENIC ARTS SUPERVISOR Hospital Encounter [facility] [address] [place] [address] Discharge Disposition: Discharge to home or self care 08/05/2024 7:24 PM SCENIC ARTS SUPERVISOR - 08/05/2024 11:59 PM SCENIC ARTS SUPERVISOR Hospital Encounter [facility] [address] [address], [place] [address] Discharge Disposition: Discharge to home or self care 08/05/2024 12:42 PM SCENIC ARTS SUPERVISOR - 08/05/2024 11:59 PM SCENIC ARTS SUPERVISOR Hospital Encounter [facility] [address] [place], [place] [phone] Carina Matias MD Lumbar radiculopathy (Primary Dx); Low back pain, unspecified back pain laterality, unspecified chronicity, unspecified whether sciatica present Discharge Disposition: Discharge to home or self care 08/05/2024 Telephone [facility] [address] [place], [place] [phone] Carina Matias MD outside images 07/17/2024 Telephone [facility] [address] [place], [place] [phone] Carina Matias MD Earlier appt? 07/14/2024 Telephone [facility] [address] [place], [place] [phone] Ghazala Cole, RN PMC Intake Assessment from Last 3 Months Surgical History Surgery Date Site/Laterality Comments [place] PROSTECT RETROPUB RAD W/W O NRV SPAR & BI PLV LYM Prostatect Retropubic Radical W/ Bilat Pelv Lymphadenectomy - 07/02/2001 (Added by TW Conv) Medical History Medical History Date Comments Personal history of other di seases of the circulatory system History of hypertension - (A dded by TW Conv) Personal history of other en docrine, nutritional and metabolic disease History of high chol esterol - (Added by TW Conv) Personal history of malignan t neoplasm of prostate History of malignant neoplas m of prostate - (Added by TW Conv) Personal history of other en docrine, nutritional and metabolic disease History of diabetes mellitus - (Added by TW Conv) Personal history of urinary calculi Personal history of kidney stones - (Added by Conv) Personal history of other di seases of the musculoskeletal system and connective tissue History of gout - (Added by Conv) Low back pain Family History Medical History Relation Name Comments Cancer Father Family history of malignant neoplasm - (Added by Conv) Hypertension Father Family history of hypertension - (Added by Conv) Kidney disease Father Family histor y of kidney disease - (Added by Conv) Diabetes Mother Family history of diabetes mellitus - (Added by TW Conv) Hypertension Mother Family history of hypertension - (Added by Conv) Relation Name Status Comments Father Mother Social History Tobacco Use Types Packs/Day Years [...] on file Legal Sex Male 2:24 AM SCENIC ARTS SUPERVISOR Gender Identity Not on file Sexual Orientation Not on file Obstetrics History Last Filed Vital Signs Vital Sign Reading [...] 09/23/2024 2:11 PM CDT Plan of Treatment Health Maintenance Due Date Last Done Comments Depression Screening 1945 DTaP/Tdap/Td Vaccine (1 - Tdap) 1954 Hepatitis B Screening 1961 Pneumococcal vaccine 65+ (1 of 1 - PCV) 1993 Zoster Vaccine (1 of 2) 1993 Well Visit 65+ 2008 Influenza Vaccine (Season Ended) 2025 Fall Risk Assessment 09/23/2025 09/23/2024, 08/05/19 25 Goals Goal Patient Goal Type Associated Problems [...] the likelihood of falling Lifestyle No Natalie Plasencia, RN Note: Below are four things you [...] stairs Contact your local community or senior forest ranch for information on exercise, fall prevention programs, or options for improving home safety. Procedures Procedure Name Priority Date/Time Associated Diagnosis Comments PAIN MGMT IMAGING LUMBAR/CAUDAL EPIDURAL STEROID INJ Schedule Routine, Read Routine (OP Routine) 09/23/2024 3:18 PM CDT Lumbar radiculopathy XR TRANSFER OF OUTSIDE FILMS Routine 08/05/2024 7:25 PM SCENIC ARTS SUPERVISOR XR TRANSFER OF OUTSIDE FILMS Routine 08/05/2024 7:24 PM SCENIC ARTS SUPERVISOR NEURO MR OUTSIDE REFERENCE Routine 08/05/2024 7:24 PM SCENIC ARTS SUPERVISOR PAIN MGMT IMAGING LUMBAR/SACRAL SELECTIVE NERVE ROOT INJ (TFE) LEFT Schedule Routine, Read Routine (OP Routine) 08/05/2024 2:12 PM SCENIC ARTS SUPERVISOR Lumbar radiculopathy from Last 3 Months Results * Imaging Lumbar/Caudal Epidural Steroid INJ ([id number]) (09/23/2024 3:18 PM CDT) Narrative RAD_PACS_[facility] - 09/23/2024 3:18 PM CDT The images from this study are not interpreted by Radiology. Please refer to the physician's procedure / OR operative note. Carina Matias MD IMG PAIN MGMT PROCEDURES F inal Result Performing Organization Address [facility] de Phone Number RAD_[email or web address] * XR Outside Reference (08/05/2024 7:25 PM SCENIC ARTS SUPERVISOR) Impressions RAD_PACS[facility] - 08/05/2024 7:25 PM SCENIC ARTS SUPERVISOR These images are for Reference purposes only and have not been reviewed by [facility] Radiology. There will be no report generated by a [facility] Radiologist. Narrative RAD_PACS_[facility] - 08/05/2024 7:25 PM SCENIC ARTS SUPERVISOR EXAMINATION: Images For Reference Purposes Only Carina Matias MD IMG XR PROCEDURES Final Re sult Performing Organization Address [facility] de Phone Number [email or web address] * Neuro MR Outside Reference (08/05/2024 7:24 PM SCENIC ARTS SUPERVISOR) Impressions RAD_PACS[facility] - 08/05/2024 7:24 PM SCENIC ARTS SUPERVISOR These images are for Reference purposes only and have not been reviewed by [facility] Radiology. There will be no report generated by a [facility] Radiologist. Narrative RAD_PACS_[facility] - 08/05/2024 7:24 PM SCENIC ARTS SUPERVISOR EXAMINATION: Images For Reference Purposes Only Carina Matias MD IMG MRI PROCEDURES Final R esult Performing Organization Address [facility] de Phone Number [email or web address] * XR Outside Reference (08/05/2024 7:24 PM SCENIC ARTS SUPERVISOR) Impressions RAD_PACS[facility] - 08/05/2024 7:24 PM SCENIC ARTS SUPERVISOR These images are for Reference purposes only and have not been reviewed by [facility] Radiology. There will be no report generated by a [facility] Radiologist. Narrative RAD_PACS_[facility] - 08/05/2024 7:24 PM SCENIC ARTS SUPERVISOR EXAMINATION: Images For Reference Purposes Only Carina Matias MD IMG XR PROCEDURES Final Re sult Performing Organization Address [facility] Co de Phone Number [email or web address] * Imaging Lumbar/Sacral Selective Nerve Root INJ (TFE) Left ([id number]) (08/05/2024 2:12 PM SCENIC ARTS SUPERVISOR) Narrative RAD_PACS[facility] - 08/05/2024 2:12 PM SCENIC ARTS SUPERVISOR The images from this study are not interpreted by Radiology. Please refer to the physician's procedure / OR operative note. Carina Matias MD IMG PAIN MGMT PROCEDURES F inal Result Performing Organization Address [facility] de Phone Number RAD_PACS_[facility] from Last 3 Months Insurance [facility] MEDICARE [facility] MEDICARE MEDICARE [facility] [place] HMO Care Teams Painter Ordnance Relationship Specialty Start Date End Date Satish Castano MD PCP - General Internal Medicine 01/18/21
--- OUTSIDE RECORDS SUMMARY | 2024-09-24 13:06 | XMS_ITS ---
Author Organization Unknown Address [address] [place] [address] [phone] Phone Care Team Providers Care Marine Equipment Research Engineer Name Role Phone CRISSY CHAUDHARY Attending Unavailable [...] Plan of Treatment US Echo With Color ([id number]) 12/25/2023 Encounters Encounter Diagnosis Start Date Code Code Sys tem Pre-surgery evaluation 12/25/2023 [id number] [facility] [place] Personal Care Team Section Performer Name Performer Role Active Date Inactive Da te AUNDREA JONES PCP - Primary care physician 2023-12-14 Imaging Narrative Notes [facility] 12/25/2023 15:[address] [address] RADIOLOGY REPORT Patient Number: [id number] Patient Name: TRACI Hickey Type: O/P MR Number: [id number] : 1945 Age: 78 Sex: M Room #: Admit Date: 12/25/23 Discharge Date 12/25/23 Ordering Physician: CRISSY CHAUDHARY Family Physician: KAREN Servin Physician: X-Ray Number : [id number] US ECHO W/ COLOR [id number] COMPLETE:12/25/23 10:48 ASL [id number] (REASON-ECHO COMPLTE: CHEST PAIN See Scanned Image Attachment for Report Dictated By: Barbara Initials: BG Jimenez Date: 12/25/23 15:37 <<REPDIST>>
--- OUTSIDE RECORDS SUMMARY | 2024-09-24 13:06 | XMS_ITS ---
Author Organization [facility] Address [address] [place] [address] Care Team Providers Care Prosthetic Makeup Designer Name Role Phone Satish Castano MD Primary Care Provider [phone] Active Problems Problem Noted Date Diagnosed Date Lumbar radiculopathy 09/23/2024 Primary osteoarthritis of both knees 05/28/2019 Prostate cancer 09/17/2018 Carpal tunnel syndrome 06/19/2017 Current Treatment and Therapy Plans No current plan information found. Past Treatment and Therapy Plans No past plan information found. Lifetime Dose Tracking * Chemical Lifetime Dose Automatic Entry Manual Entr y Fluoro Time 0.542 minutes 0.542 minutes 0 minutes Air kerma at the reference point (Ka,r) 5.8 mGy 5 .8 mGy 0 mGy
--- OUTSIDE RECORDS SUMMARY | 2024-09-24 13:06 | XMS_ITS | Encounter Summary ---
Author Organization [facility] Healthcare Address [address] [place] [address] Care Team Providers Care Italian Tutor Name Role Phone Satish Castano MD Primary Care Provider [phone] Reason for Referral * Diagnostic Imaging (Routine) - Closed Specialty Diagnoses / Procedures Referred By Contac t Referred To Contact Diagnoses Lumbar radiculopathy Procedures Imaging Lumbar/Caudal Epidural Steroid INJ ([id number]) Carina Matias MD [address] [place] [address] Phone: tel: fax: [place] [address] [place] [address] Referral ID Status Reason Start Date Expiration Date Visits Re quested Visits Authorized [id number] Closed 08/19/2024 09/18/2025 1 1 Reason for Visit * Reason Comments Procedure * Diagnostic Imaging (Routine) - Closed Specialty Diagnoses / Procedures Referred By Contac t Referred To Contact Diagnoses Lumbar radiculopathy Procedures Imaging Lumbar/Caudal Epidural Steroid INJ ([id number]) Carina Matias MD [address] [place] [address] Phone: tel: fax: [place] [address] [place] [phone] Referral ID Status Reason Start Date Expiration Date Visits Re quested Visits Authorized [id number] Closed 08/19/2024 09/18/2025 1 1 Encounter Details Date Type Department Care Team (Latest Contact Info) Description 09/23/2024 2:07 PM CDT - 09/23/2024 11:59 PM CDT Hospital Encounter [facility] [address] [facility] [address] [place] [phone] Carina Matias MD [address] [place] [address] Lumbar radiculopathy Discharge Disposition: Discharge to home or self care Social History Tobacco Use Types Packs/Day Years Used Date Smoking Tobacco: Never AUDIT-C Answer Date Recorded Q1: How often [...] on file Legal 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 Never 09/23/2024 2:19 PM SHASTAT Gaby Borrego RN Q2: How many drinks containing alcohol do you have on a typical day when you are drinking? Patient does not drink 09/23/2024 2:19 PM SHASTAT Gaby Borrego, AMISH Q3: How often do you have six or more drinks on one occasion? Never 09/23/2024 2:19 PM SHASTAT Gaby Borrego , AMISH documented as of this encounter Discharge Instructions * Patient Instructions* Joan Jauregui RN - 09/23/2024 2:15 PM CDT [facility] DISCHARGE INSTRUCTIONS [phone] (Sunday-Sunday 7:30 am - 4:00 pm) PLAN:A nurse will call you in 2 weeks to discuss your pain relief. PROCEDURE TODAY: Lumbar Epidural Steroid injection PROCEDURE AT NEXT VISIT: DIAGNOSTIC TEST(S): FOLLOW UP: STEROID INJECTION POST-PROCEDURE INFORMATION SHEET WHEN YOU GET HOME: Resume your normal medication. Resume your normal diet. For soreness, you may place an ice bag once an hour at the injection site for 15-20 minutes. After 24 hours, you may use heat at the injection site. DO NOT lie on, or fall asleep with the heating pad. You may shower daily. To prevent infection, do not take a bath, swim, or sit in a Jacuzzi or hot tub for the next 2 days. Drink plenty of fluids-to decrease your chance of a headache, which may occur occasionally after injection. IT MAY TAKE THE STEROID MEDICATION 3-7 DAYS TO START WORKING AND CAN TAKE UP TO TWO WEEKS FOR FULL BENEFIT OF MEDICATION. You may experience side effects of the steroid medication. Some of these side effects include: Dizziness or light headedness upon standing. Steroid Flushing - flushing of the face and chest that can last several days and be accompanied by a feeling of warmth or low grade increase in temperature. Increased pain or soreness or achiness at the injection site. Slight weakness or numbness in arms or legs. Anxiety, trouble sleeping Increase in blood sugars Serious complications are rare, but could include: Severe Allergic Reaction Bleeding Infection indicated but not limited to fever over 101, warmth/redness/drainage to injection site Severe Headache when sitting or standing that is resolved when lying down Loss of balance/difficulty walking Loss of bowel or bladder control Increasing muscle weakness or prolonged numbness in the arms or legs. DIABETES AND STEROID INJECTION POST-PROCEDURE INSTRUCTIONS You have received a steroid injection today. Patients who have diabetes may see an increase in their blood sugar levels. This increase in blood sugar levels may be present for up to a week following the steroid injection. PLAN Monitor your blood sugar levels routinely. If your blood sugar levels are continually increasing, contact your Primary Physician or the Physician that helps you control your diabetes, for further instructions on how to manage it. If you experience ANY of the above serious symptoms, Call 911 and go to the Emergency Department. Notify [facility] AFTER receiving care for the symptoms. The Pain Management Center is committed to providing your medication refills in a timely manner. When submitting a refill request, please note the following guidelines: Federal guidelines recommend patients with chronic pain, for whom opioid medications are prescribed, be evaluated at least once every two-three months.The [facility] Management Center adheres to these guidelines and patients should plan to be seen at least every two-three months (or more frequently, as deemed appropriate by the prescribing provider). To allow timely scheduling of evaluations, please contact the office to schedule your appointment 6-8 weeks in advance. For all opioid/narcotic prescription refills, please contact the Pain Management Center at least 7 days prior to the date of need. Call [phone] choose option #5 and leave the following information: Name, date of , and phone number Name(s) of the medication(s) needing refill Name and number for the pharmacy where the refill(s) should be sent All non-opioid/non-narcotic refill requests should be submitted directly to the pharmacy. The pharmacy will then contact the [facility] with the necessary information. For any questions about your visit or your procedure, please call the Pain Management Center [phone] (Sunday-Sunday 7:30 am - 4:00 pm). Please leave a message on the Nurse Line for ALL Non Urgent matters (option #5). If you have an urgent matter during normal business hours please choose option #4 for current patients. If you need urgent attention after 4 pm, on the weekends, or a holiday that can not wait until the office opens: Please call 911 or go to the nearest Emergency Room. documented in this encounter Medications at Time of Discharge acetaminophen (TYLENOL) 500 mg tablet 2 tablet 3 TIMES DAILY (route: oral) 01/26/2024 allopurinoL (ZYLOPRIM) 100 mg tablet Take 1 tablet (100 mg total) by mouth daily 06/07/2007 aspirin 81 mg enteric coated tablet 06/07/2007 Farxiga 10 mg tablet Take 1 tablet (10 mg total) by mouth every morning hxyx-ofcjek-lndjg gen-D3-C-Mn (Glucosamine-Nixon dr-D3, C-jessy,) 500-400-667 mg-mg-unit capsule 06/07/2007 insulin degludec (TRESIBA) 100 unit/mL (3 mL) pen for injection 30 unit BEDTIME (route: subcutaneous) 01/16/2024 lisinopriL (PRINIVIL,ZESTRIL ) 40 mg tablet Take 1 tablet (40 mg total) by mouth daily 05/20/2019 lovastatin (MEVACOR) 40 mg tablet Take 1 tablet (40 mg total) by mouth daily 06/07/2007 metoprolol XL (TOPROL-XL) 25 mg 24 hr tablet Take 1 tablet (25 mg total) by mouth daily 05/01/2019 multivitamin tablet 06/07/2007 omega-3 fatty acids-fish oil 300-1,000 mg capsule Take 2 capsules (2 g total) by mouth daily pregabalin (LYRICA) 75 mg capsule Take 1 capsule (75 mg total) by mouth 2 (two) times a day 07/07/2024 documented as of this encounter Discharge Disposition Disposition Code Departure Means Destination Discharge to home or self care documented in this encounter Miscellaneous Notes * Perioperative Nursing Note - Gaby Borrego RN - 09/23/2024 2:[address] Matias here to see to evaluate Bradycardia noted on intake. When monitor applied, noted HR 62,with bigeminy. Pt denies chest pain or any symptoms. Spontaneously converted to SB-SR. * Perioperative Nursing Note - Joan Jauregui RN - 09/23/2024 2:15 PM CDT Prior to start of procedure,DR. Matias is aware that Pt's HR is running between 34 to 51. Pt denies any lightheadedness, dizziness or CP and denies blurred vision. * Op Note - Carina Matias MD - 09/23/2024 2:15 PM CDT OPERATIVE NOTE: Name: Griffin Roe : 1945 Date of Surgery: 09/23/2024 PCP: Satish Castano MD PROCEDURE NOTE: Lumbar epidural steroid injection PRE-OP DIAGNOSIS: Lumbar radiculopathy POST-OP DIAGNOSIS: Same PROCEDURE: Interlaminar lumbar epidural steroid injection under fluoroscopic control with contrast enhancement LOCATION: [facility] METHOD OF PROCEDURE: IV access was not obtained prior to the procedure. The patient was brought to the procedure suite. Cardiovascular monitoring was initiated, and vital signs were stable prior to, during, and after the procedure. The patient was positioned in the prone position on the fluoroscopy table. The area was sterilely prepped and draped. Skin anesthesia was achieved using 5 cc of Lidocaine 1% over the respective injection site. A 20g, 3.5 Tuohy needle was slowly inserted into the dorsal epidural space at the L3/4 insterspace using AP, lateral and oblique fluoroscopic imaging with the loss of resistance technique. Negative aspiration for heme and CSF was confirmed. 1 cc of contrast was injected confirming epidural contrast spread. A combination of 4 cc of normal saline, 1%PSF Lidocaine and 10mg Dexamethasone was injected. The needle was removed after the stylet was repositioned. A sterile Band-Aid was applied. The patient was brought to recovery in stable condition. ANESTHESIA: Local. COMPLICATIONS: None. PLAN: The patient will follow up in the office as scheduled. Written and verbal discharge instructions were given. DISPOSITION: Discharged home in stable condition. Operative Findings: None Estimated Blood Loss: None Intraoperative Fluids: None Specimens: None Blood/Blood Products Transfused: None No Resident involved on case Carina Matias MD 09/23/2024 10:42 PM documented in this encounter Plan of Treatment Not on file documented as of this encounter Goals Goal Patient Goal Type Associated Problems [...] stairs Contact your local community or senior surry for information on exercise, fall prevention programs, or options for improving home safety. documented as of this encounter Procedures Procedure Name Priority Date/Time Associated Diagnosis Comments PAIN MGMT IMAGING LUMBAR/CAUDAL EPIDURAL STEROID INJ Schedule Routine, Read Routine (OP Routine) 09/23/2024 3:18 PM CDT Lumbar radiculopathy documented in this encounter Results * Imaging Lumbar/Caudal Epidural Steroid INJ ([id number]) (09/23/2024 3:18 PM CDT) Narrative [facility] - 09/23/2024 3:18 PM CDT The images from this study are not interpreted by Radiology. Please refer to the physician's procedure / OR operative note. Carina Matias MD IMG PAIN MGMT PROCEDURES F inal Result [facility] documented in this encounter Visit Diagnoses Diagnosis Lumbar radiculopathy Thoracic or lumbosacral neuritis or radiculitis, unspecified documented in this encounter Administered Medications Inactive Administered Medications - up to 3 most recent administrations Medication Order MAR Action Action Date Dose Rate Site dexAMETHasone (DECADRON) preservative free solution intralumbar, Administer over 2 Minutes, As needed, Starting on 09/23/24 at 1516, Intra-Op Given 09/23/2024 3:16 PM CDT 10 mg iohexoL (OMNIPAQUE) 300 mg iodine/mL injection solution As needed, Starting on 09/23/24 at 1516, Intra-Op Given 09/23/2024 3:16 PM CDT 1 mL lidocaine (PF) (XYLOCAINE) 10 mg/mL (1 %) preservative free injection As needed, Starting on 09/23/24 at 1510, Intra-Op Given 09/23/2024 3:16 PM CDT 1 mL Given 09/23/2024 3:10 PM CDT 3 mL sodium chloride 0.9% flush intra-catheter, As needed, Starting on 09/23/24 at 1516, Intra-Op Given 09/23/2024 3:16 PM CDT 2 mL documented in this encounter Care Teams Italian Tutor Relationship Specialty Start Date End Date Satish Castano MD PCP - General Internal Medicine 01/18/21 documented as of this encounter
--- OUTSIDE RECORDS SUMMARY | 2024-09-24 13:06 | XMS_ITS | Clinical Summary ---
Author Organization [facility] Address [facility] [place] [address] Care Team Providers Care Orthopaedic General Name Role Phone Satish Castano MD Primary Care Provider [phone] Social History Tobacco Use Types Packs/Day Years Used Date Smoking Tobacco: Never Sex and Gender Information Value Date Recorded Sex Assigned at Not on file Legal Sex Male 6:36 PM CDT Gender Identity Not on file Sexual Orientation Not on file Last Filed Vital Signs Vital Sign Reading Time Taken Comments Blood Pressure 110/74 10/23/2011 2:21 PM CDT Pulse 102 10/23/2011 2:21 PM CDT Temperature - - Respiratory Rate 18 10/23/2011 2:21 PM CDT Oxygen Saturation - - Inhaled Oxygen Concentration - - Weight 90.7 kg (200 lb) 10/23/2011 2:21 PM CDT Height 172.7 cm (5' 8 ) 10/23/2011 2:21 PM CDT Body Mass Index 30.41 10/23/2011 2:21 PM CDT Plan of Treatment Health Maintenance Due Date Last Done Comments Pneumococcal Vaccine: 65+ Ye ars (1 of 2 - PCV) 1949 DTaP, Tdap and Td Vaccines ( 1 - Tdap) 1962 Zoster Vaccines (1 of 2) 1993 Annual Medicare Wellness Visit 2008 RSV Immunization or 60+ Years (1 - 1-dose 75+ series) 2018 COVID-19 Vaccine ( - 2023-2 5 season) 2024 Meningococcal B Vaccine Aged Out No l onger eligible based on patient's age to complete this topic Meningococcal Vaccine Aged Out No yo kerwin eligible based on patient's age to complete this topic RSV Immunizations Under 20 Months Aged Out No longer eligible based on patient's age to complete this topic Insurance [facility] MEDICARE Care Teams Orthopaedic General Relationship Specialty Start Date End Date Satish Castano MD [address] [place] [address] PCP - General INTERNAL MEDICINE 12/25/23
--- OUTSIDE RECORDS SUMMARY | 2024-09-24 13:06 | XMS_ITS | Clinical Summary ---
Author Organization [facility] [place] [facility] Address [address] [facility] [place] [address] Care Team Providers Care Gold Leaf Layer Name Role Phone Satish Castano MD Primary Care Provider [phone] Ritchie Rene MD Unavailable [phone] Oracio Ramos MD Unavailable [phone] Source Comments [facility],non-owned Affiliates and Associated Physician Practices is amultiple site organization consisting of ambulatory clinics and hospital sitesin [place], [place], [place] and [place]. This disclosure is being madepursuant to the Care Everywhere program and may not contain all information available regarding this patient. Last updated 18.[facility] Allergies No known active allergies Medications * Be aware that medications may not be up to date on this document. Alwaysverify current medications with the patient. Medication Sig Dispensed Refills Start Date End Date Status lovastatin (MEVACOR) 40 MG tablet Take 1 (one) tablet by mouth once daily 04/01/2019 Active allopurinol (ZYLOPRIM) 100 MG tablet Take 1 (one) tablet by mouth 2 times daily 04/24/2019 Active metoprolol succinate XL 24hr (TOPROL XL) 25 MG tablet Take 1 (one) tablet by mouth once daily 05/01/2019 Active DULoxetine (Cymbalta) 30 MG capsule Take 1 (one) capsule by mouth once daily 12/02/2022 Active losartan (Cozaar) 25 MG tablet Take 1 (one) tablet by mouth once daily 08/21/2023 Active BD Pen Needle Shari 2nd Gen 32G X 4 MM MISC USE EVERY NIGHT WITH TRESIBA 09/19/2023 Active Tresiba FlexTouch 100 UNIT/ML pen INJECT 30 UNITS AT BEDTIME DIRECTED 10/30/2023 Active Continuous Glucose Sensor (FreeStyle Julita 2 Sensor Systm) MISC USE DIRECTED TO CHECK BLOOD SUGARS 10/15/2023 Active Farxiga 10 MG tablet Take 1 (one) tablet by mouth once daily 09/20/2023 Active Multiple Vitamin (ONE-A-DAY MENS PO) Take by mouth once daily Active Misc Natural Products (OSTEO BI-FLEX TRIPLE STRENGTH PO) Take by mouth once daily Active fish oil/omega-3 fatty acids (Promega;Cardi-Bellaire 3) 1000 MG capsule Take by mouth 2 times daily with morning and evening meal Active vitamin D3 (Cholecalciferol) 25 MCG (1000 UNITS) tablet Take by mouth once daily Active Turmeric (QC TUMERIC COMPLEX PO) Take by mouth once daily Active acetaminophen (Tylenol) 500 MG capsule Take 2 (two) capsules by mouth 3 times daily Take for ten days then as needed. 01/14/2024 Active oxyCODONE, immediate release, (Roxicodone) 5 MG tabletIndications:Po stoperative pain Take 1 (one) tablet to 2 (two) tablets by mouth every 4 hours as needed for Pain 42 tablet 01/31/2024 Active Active Problems Problem Noted Date Diagnosed Date Primary osteoarthritis of both knees 05/28/2019 Prostate cancer 09/17/2018 Social History Tobacco Use Types Packs/Day Years Used Date Smoking Tobacco: Never Smokeless Tobacco: Never Tobacco Cessation:Counseling Given: Not Answered Alcohol Use Standard Drinks/Week Comments Not Currently 0 (1 standard drink = 0.6 oz pur e alcohol) Overall Financial Resource Strain (CARDIA) Answe r Date Recorded How hard is it for you to pa y for the very basics like food, housing, medical care, and heating? Not hard at all 01/14/2024 PHQ-2 Answer Date Recorded Patient Health Questionnaire-2 Score 0 05/23/2023 [facility] - Occupational Stress Questionnaire Answer Date Recorded Do you feel stress - tense, restless, nervous, or anxious, or unable to sleep at night because your mind is troubled all the time - these days? Not at all 01/14/2024 Hunger Vital Sign Answer Date Recorded Within the past 12 months, y ou worried that your food would run out before you got the money to buy more. Never true 01/14/20 24 Within the past 12 months, t he food you bought just didn't last and you didn't have money to get more. Never true 01/14/2024 PRAPARE - Transportation Answer Date Re corded In the past 12 months, has l ack of transportation kept you from medical appointments or from getting medications? No 12/17 In the past 12 months, has l ack of transportation kept you from meetings, work, or from getting things needed for daily living? No 01/14/2024 Housing Stability Vital Sign Answer Gerald e Recorded In the last 12 months, was t here a time when you were not able to pay the mortgage or rent on time? No 01/14/2024 In the last 12 months, how many places have you lived? 1 01/14/2024 In the last 12 months, was t here a time when you did not have a steady place to sleep or slept in a skilled nursing (including now)? No 01/14/2024 Sex and Gender Information Value Date Recorded Sex Assigned at Not on file Gender Identity Not on file Sexual Orientation Not on file Last Filed Vital Signs Vital Sign Reading Time Taken Comments Blood Pressure 129/57 01/15/2024 12:34 PM CDT Pulse 57 01/15/2024 11:18 AM CDT Temperature 36.6 C (97.8 F) 01/15/2024 11:18 AM CDT Respiratory Rate 18 01/15/2024 11:18 AM CDT Oxygen Saturation 95% 01/15/2024 11:18 AM CDT Inhaled Oxygen Concentration - - Weight 84.8 kg (187 lb) 01/14/2024 7:57 AM CDT Height 172.7 cm (5' 8 ) 01/14/2024 7:57 AM CDT Body Mass Index 28.43 01/14/2024 7:57 AM CDT Plan of Treatment Health Maintenance Due Date Last Done Comments MEDICARE AWV 12 MONTHS 1945 DTAP/TDAP/TD VACCINES (1 - Tdap) 1962 PNEUMOCOCCAL VACCINE 50+ (1 of 2 - PCV) 1962 ZOSTER VACCINE (1 of 2) 1993 Respiratory Syncytial Virus (RSV) Vaccine Pt: or over 60 yrs (1 - 1-dose 75+ series) 2018 COVID-19 VACCINE (2023-2 5 season) 2024 DEPRESSION SCREENING 06/18/2024 05/23/2023 INFLUENZA VACCINE (Season Ended) 2025 HEPATITIS B VACCINE Aged Out No longe r eligible based on patient's age to complete this topic HIB VACCINE Aged Out No longer eligi ble based on patient's age to complete this topic HPV VACCINE Aged Out No longer eligi ble based on patient's age to complete this topic MENINGOCOCCAL (Group B) VACC INE SHARED DECISION-MAKING Aged Out No longer eligibl e based on patient's age to complete this topic MENINGOCOCCAL GROUPS A/C/Y/W VACCINE Aged Out No longer eligible b ased on patient's age to complete this topic Medical Devices Implanted Type Area Hull Outfit Supervisor Device Identifier Shelf Expiration Date Model / Serial / Lot Cmnt Bone Plc R 40gm Grn Implanted:Qty: 1 on 01/14/2024 by Ritchie Rene MD at [facility] Left: Knee [employer] 05/17/2026 [id number] / / [id number] Tray Tib 71mm Kn Cocr I Beam Implanted:Qty: 1 on 01/14/2024 by Ritchie Rene MD at [facility] Left: Knee [employer] 07/29/2032 [id number] / / [id number] Cmpnt Fem Kn Lt Cr Cmnt Prm Vngrd Intlk 65 Mm Implanted:Qty: 1 on 01/14/2024 by Ritchie Rene MD at [facility] Left: Knee [employer] 10/11/2033 [id number] / / [id number] Cmpnt Ptlr Std 28mm 3 Pg Kn Ser A Implanted:Qty: 1 on 01/14/2024 by Ritchie Rene MD at [facility] Left: Knee [employer] 11/19/2028 [id number] / / [id number] Brng [id number] Vngrd Vivacit-E Kn Ant Stab Implanted:Qty: 1 on 01/14/2024 by Ritchie Rene MD at [facility] Left: Knee [employer] 10/13/2028 [id number] / / [id number] Advance Directives * Full Code (Latest Code Status on File) Date Activated Date Inactivated Comments 01/14/2024 12:36 PM 01/15/2024 6:44 PM Care Teams Gold Leaf Layer Relationship Specialty Start Date End Date Satish Castano MD [address] [place] [address] PCP - General Internal Medicine 05/23/19 [place] [id number] [place] [address] Orthopedic Surgery 05/23/19 [place] [id number] [place] [address] Cardiovascular Disease 12/12/23
--- NOTE | 2024-09-25 15:44 | WPDHOLTEREM ---
Holter/Event Monitor Holter/Event Monitor Date of procedure: 09/24/24 Holter/Event Procedure: 24 Hr Holter Monitor Indications: Bradycardia Conclusion: 1. 24 hour holter monitor on 09/24/24. 2. Underlying rhythm is sinus rhythm. HR range 35-91 bpm; average HR 56 bpm. HR at 35 bpm was at 05:10. 3. There are 170 premature supraventricular complexes, 6 supraventricular couplets. No supraventricular tachycardia. 4. There are 3,656 premature ventricular complexes, 46 ventricular couplets, 2 ventricular triplets, 7,736 ventricular bigeminy and 1,813 ventricular trigeminy. No ventricular tachycardia. 5. The longest pause is 2.3 seconds at 05:07. 6. No symptoms available for correlation.
== END 2024-09-24 11:20 | disposition home or self-care (01) ==
LOC: CHSCARD 11:24
PROVIDERS: PCP Internal Medicine; Visit Provider Internal Medicine
DX: R00.1 Bradycardia, unspecified (principal); I45.89 Other specified conduction disorders; I44.0 Atrioventricular block, first degree
CPT/HCPCS: 93005; 93225; 93226

== ENCOUNTER 2024-12-25 11:58 | Outpatient (CLI) | payer MEDICARE, OTHER, SELFPAY ==
--- OUTSIDE RECORDS SUMMARY | 2024-12-25 12:01 | XMS_ITS ---
Author Organization [facility] Address [address] [place] [address] Care Team Providers Care Paleontology Teacher Name Role Phone Satish Castano MD Primary Care Provider [phone] Active Problems Problem Noted Date Diagnosed Date Lumbar radiculopathy 09/23/2024 Primary osteoarthritis of both knees 05/28/2019 Prostate cancer 09/17/2018 Carpal tunnel syndrome 06/19/2017 Current Treatment and Therapy Plans No current plan information found. Past Treatment and Therapy Plans No past plan information found. Lifetime Dose Tracking * Chemical Lifetime Dose Automatic Entry Manual Entr y Fluoro Time 0.823 minutes 0.823 minutes 0 minutes Air kerma at the reference point (Ka,r) 10.3 mGy 1 0.3 mGy 0 mGy
--- OUTSIDE RECORDS SUMMARY | 2024-12-25 12:01 | XMS_ITS | Clinical Summary ---
Author Organization [facility] Address [address] [place] [address] Care Team Providers Care Secretary Office Clerk Name Role Phone Satish Castano MD Primary Care Provider [phone] Allergies No known active allergies Medications aspirin 81 mg enteric coated tablet 06/07/2007 Active zhvg-ofzles-gyr olzsb-W0-Y-Mn (Glucosamine-Ch ondr-D3, C-jessy,) 500-400-667 mg-mg-unit capsule 06/07/2007 [...] 30 unit BEDTIME (route: subcutaneous) 01/16/2024 Active FreeStyle Julita 2 Sensor kit USE DIRECTED TO CHECK BLOOD SUGARS 09/19/2024 Active pregabalin (LYRICA) 150 mg capsule Take 1 capsule (150 mg total) by mouth 2 (two) times a day 60 capsule 5 11/01/2024 04/30/20 25 Active Active Problems Problem Noted Date Diagnosed Date Lumbar radiculopathy 09/23/2024 Primary osteoarthritis of both knees 05/28/2019 Prostate cancer 09/17/2018 Carpal tunnel syndrome 06/19/2017 Encounters Date Type Department Care Team Description 12/05/2024 Telephone [facility] at [address] [place] [address] Carina Matias MD 12/02/2024 Orders Only [facility] at [address] [place] [address] Carina Matias MD Spinal stenosis of lumbar region with neurogenic claudication (Primary Dx) 12/01/2024 Telephone [facility] at [address] [place] [address] Carina Matias MD 2 week post proc call 11/17/2024 9:00 AM CDT - 11/17/2024 11:59 PM CDT Hospital Encounter [facility] at [address] [place] [address] Carina Matias MD Lumbar radiculopathy Discharge Disposition: Discharge to home or self care 11/01/2024 Orders Only [facility] at [address] [place] [address] Carina Matias MD 10/27/2024 Orders Only [facility] at [address] [place], [place] [address] Carina Matias MD 10/27/2024 Telephone [facility] at [address] [place], [place] [address] Carina Matias MD Med Management 10/20/2024 2:08 PM CDT - 10/20/2024 11:59 PM CDT Hospital Encounter [facility] at [address] [place], [place] [address] Carina Matias MD Lumbar radiculopathy (Primary Dx); Lumbar stenosis with neurogenic claudication; Primary osteoarthritis of both knees; Degeneration of intervertebral disc of lumbar region with discogenic back pain and lower extremity pain Discharge Disposition: Discharge to home or self care 10/07/2024 Telephone [facility] at [address] [place], [place] [phone] Carina Matias MD POST CALL 10/06/2024 Orders Only [facility] at [address] [place], [place] [phone] Carina Matias MD 10/06/2024 Telephone [facility] at [address] [place], [place] [phone] Carina Matias MD Med Management from Last 3 Months Surgical History Surgery Date Site/Laterality Comments MS PROSTECT RETROPUB RAD W/W O NRV SPAR [...] neoplas m of prostate - (Added by Conv) Personal history of other en docrine, nutritional and metabolic disease History of diabetes mellitus - (Added by Conv) Personal history of urinary calculi Personal history of kidney stones - (Added by ) Personal history of other di seases of the musculoskeletal system and connective tissue History of gout - (Added by Conv) Low back pain Family History Medical History Relation Name Comments Cancer Father Family history of malignant neoplasm - (Added by Conv) Hypertension Father Family history of hypertension - (Added by ) Kidney disease Father Family histor y of kidney disease - (Added by ) Diabetes Mother Family history of diabetes mellitus - (Added by ) Hypertension Mother Family history of hypertension - (Added by ) Relation Name Status Comments Father Mother Social History Tobacco Use Types Packs/Day Years Used Date Smoking Tobacco: Never Tobacco Cessation:Counseling Given: Not Answered AUDIT-C Answer Date Recorded Q1: How often do you have a drink containing alcohol? Never 10/20/2024 Q2: How many drinks containi ng alcohol do you have on a typical day when you are drinking? Patient does not drink Q3: How often do you have si x or more drinks on one occasion? 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 Gender Identity Not on file Sexual Orientation Not on file Obstetrics History Last Filed Vital Signs Vital Sign Reading Time Taken Comments Blood Pressure 193/87 11/17/2024 10:10 AM CDT Pulse 55 11/17/2024 10:10 AM CDT Temperature 35.9 C (96.6 F) 11/17/2024 9:03 AM CDT Respiratory Rate 16 11/17/2024 10:10 AM CDT Oxygen Saturation 97% 11/17/2024 10:10 AM CDT Inhaled Oxygen Concentration - - Weight 86.2 kg (190 lb) 09/23/2024 2:11 PM CDT Height 172.7 cm (5' 8) 09/23/2024 2:11 PM CDT Body Mass Index 28.89 09/23/2024 2:11 PM CDT Plan of Treatment Health Maintenance Due Date Last Done Comments Depression Screening 1943 DTaP/Tdap/Td Vaccine (1 - Tdap) 1954 Hepatitis B Screening 1961 Pneumococcal vaccine 65+ (1 of 1 - PCV) 1993 Zoster Vaccine (1 of 2) 1993 Well Visit 65+ 2008 Influenza Vaccine (#1) 2025 Fall Risk Assessment 11/17/2025 11/17/2024, 10/20/2024, 08/05/2024 Goals Goal Patient Goal Type Associated Problems Recent Progress Patient-Stated? Author CCM Chronic Pain Care Plan Chronic Care Management No Natalie Plasencia, RN Note: Problem: Chronic Pain Goals: 1. [...] INJ Schedule Routine, Read Routine (OP Routine) 11/17/2024 10:01 AM CDT Lumbar radiculopathy from Last 3 Months Results * Imaging Lumbar/Caudal Epidural Steroid INJ (65051) (11/17/2024 10:01 AM CDT) Narrative RAD_PACS_[facility] - 11/17/2024 10:18 AM CDT The images from this study are not interpreted by Radiology. Please refer to the physician's procedure / OR operative note. [facility] Mason Matias MD IM PAIN MGMT PROCEDURES F inal Result RAD_PACS_[facility] from Last 3 Months Insurance [facility] HMO MEDICARE [facility] HMO/POS MEDICARE [facility] Address: [address] [address] [place] [address] MEDICARE AET[employer] [facility] [place] Care Teams Secretary Office Clerk Relationship Specialty Start Date End Date Satish Castano MD PCP - General Internal Medicine 01/18/21
--- OUTSIDE RECORDS SUMMARY | 2024-12-25 12:01 | XMS_ITS | Clinical Summary ---
Author Organization [facility] Address [address] [place] [address] Care Team Providers Care Salesperson Pets And Pet Supplies Name Role Phone Satish Castano MD Primary Care Provider [phone] Ritchie Rene MD Unavailable [phone] Oracio Ramos MD Unavailable [phone] Source Comments [facility],non-owned Affiliates and Associated Physician Practices is amultiple site organization consisting of ambulatory clinics and hospital sitesin [place], [place], [place] and [place]. This disclosure is being madepursuant to the Care Everywhere program and may not contain all information available regarding this patient. Last updated 18.[facility] Allergies No known active allergies Medications * Be aware that medications may not be up to date on this document. Alwaysverify current medications with the patient. lovastatin (MEVACOR) 40 MG tablet Take 1 [...] once daily Active fish oil/omega-3 fatty acids (Promega;Cardi- [place] 3) 1000 MG capsule Take by mouth 2 times daily with morning and evening meal Active vitamin D3 (Cholecalcifero l) 25 MCG (1000 UNITS) tablet Take by mouth once daily Active Turmeric (QC TUMERIC COMPLEX PO) Take by mouth once daily Active acetaminophen (Tylenol) 500 MG capsule Take 2 (two) capsules by mouth 3 times daily Take for ten days then as needed. 01/14/2024 Active oxyCODONE, immediate release, (Roxicodone) 5 MG tabletIndicatio ns:Postoperativ e pain Take 1 (one) tablet to 2 [...] Recorded Patient Health Questionnaire-2 Score 0 05/23/2023 [facility] [place] of Occupat ional Health - Occupational Stress [...] place to sleep or slept in a detention (including now)? 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 Author Autogenerat ed Goal Care Plan Autogenerated Problem No [employer] Devices Implanted Type Area Cow Tester Device Identifier Shelf Expiration Date Model / Serial / Lot Cmnt Bone Plc R 40gm Grn Implanted:Qty: 1 on 01/14/2024 by Ritchie Rene MD at [facility] Left: Knee [employer] 05/17/2026 [id number] / / [id number] Tray Tib 71mm Kn Cocr I Beam Implanted:Qty: 1 on 01/14/2024 by Ritchie Rene MD at [facility] Left: Knee [employer] 07/29/2032 [id number] / / [id number] Cmpnt Fem Kn Lt Cr Cmnt Prm Vngrd Intlk 65 Mm Implanted:Qty: 1 on 01/14/2024 by Ritchie Rene MD at [facility] Left: Knee [employer] 10/11/2033 [id number] / / [id number] Cmpnt Ptlr Std 28mm 3 Pg Kn Ser A Implanted:Qty: 1 on 01/14/2024 by Ritchie Rene MD at [facility] Left: Knee [employer] 11/19/2028 [id number] / / [id number] Brng 29p65mc Vngrd Vivacit-E Kn Ant Stab Implanted:Qty: 1 on 01/14/2024 by Ritchie Rene MD at [facility] Left: Knee [employer] 10/13/2028 [id number] / / [id number] Additional Health Concerns Active Problems Noted Date Diagnosed Date Autogenerated Problem 11/09/2024 Insurance MEDICARE AET Advance Directives * Full Code (Latest Code Status on File) Date Activated Date Inactivated Comments 01/14/2024 12:36 PM 01/15/2024 6:44 PM Care Teams Salesperson Pets And Pet Supplies Relationship Specialty Start Date End Date Satish Castano MD [address] [place] [address] PCP - General Internal Medicine 05/23/19 [place] [address] [place], [place] [id number] Orthopedic Surgery 05/23/19 [place] [address] [place], [place] [id number] Cardiovascular Disease 12/12/23
--- OUTSIDE RECORDS SUMMARY | 2024-12-25 12:01 | XMS_ITS | Patient Health Record ---
Author Organization [facility] Address [address] [place], [place] [id number] Care Team Providers Care Risk Compliance Manager Name Role Phone ALICIA ANAND Unavailable [phone] Satish Castano Unavailable Unavailable Reason For Referral No Information Plan Of Treatment No Information Insurance Providers Payer Name Payer Address Payer Phone Subscriber Number Group Number Insured Name Patient Relationship to Insured Coverage Start Date Coverage End Date Aet[employer] [address] [place] [address] [id number] TY AVILES Self - patient is the insured Medicare Part B [place] [address] [place] [phone] [id number] TY AVILES Self - patient is the insured
--- OUTSIDE RECORDS SUMMARY | 2024-12-25 12:01 | XMS_ITS | Referral Summary ---
Author Organization [facility] Address [address] [place] [address] Care Team Providers Care Crozer Operator Name Role Phone Satish Castano MD Primary Care Provider [phone] Encounters Date Type Department Care Team Description 12/05/2024 Telephone [facility] at [address] [place] [address] Carina Matias MD 12/02/2024 Orders Only [facility] at [address] [place] [address] Carina Matias MD Spinal stenosis of lumbar region with neurogenic claudication (Primary Dx) 12/01/2024 Telephone [facility] at [address] [place] [address] Carina Matias MD 2 week post proc call 11/17/2024 9:00 AM CDT - 11/17/2024 11:59 PM CDT Hospital Encounter [facility] at [address] [place] [address] Carina Matias MD Lumbar radiculopathy Discharge Disposition: Discharge to home or self care 11/01/2024 Orders Only [facility] at [address] [place], [place] [address] Carina Matias MD 10/27/2024 Orders Only [facility] at [address] [place], [place] [address] Carina Matias MD 10/27/2024 Telephone [facility] at [address] [place], [place] [address] Carina Matias MD Med Management 10/20/2024 2:08 PM CDT - 10/20/2024 11:59 PM CDT Hospital Encounter [facility] at [address] [place], [place] [address] Carina Matias MD Lumbar radiculopathy (Primary Dx); Lumbar stenosis with neurogenic claudication; Primary osteoarthritis of both knees; Degeneration of intervertebral disc of lumbar region with discogenic back pain and lower extremity pain Discharge Disposition: Discharge to home or self care 10/07/2024 Telephone [facility] at [address] [place], [place] [address] Carina Matias MD POST CALL 10/06/2024 Orders Only [facility] at [address] [place], [place] [address] Carina Matias MD 10/06/2024 Telephone [facility] at [address] [place], [place] [address] Carina Matias MD Med Management from Last 3 Months Allergies No known active allergies Medications aspirin 81 mg enteric coated tablet 06/07/2007 Active uitd-pezuft-wcn tdcka-P3-O-Mn (Glucosamine-Ch ondr-D3, C-jessy,) 500-400-667 mg-mg-unit capsule 06/07/2007 [...] on file 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 Please refer to the physician's procedure / OR operative note. [facility] Mason Matias MD IMG PAIN MGMT PROCEDURES F inal Result RAD_PACS_[facility] from Last 3 Months Insurance [facility] MEDICARE [facility] Address: [address] [address] [place] [address] T COVENTRY HMO/POS MEDICARE MEDICARE AETNA [place] HMO/POS Care Teams Crozer Operator Relationship Specialty Start Date End Date Satish Castano MD PCP - General Internal Medicine 01/18/21
[2024-12-25 12:52] LABS: Total Protein Urine Random 15 mg/dL; Ur Ttl Prot Creatinine Ratio 0.16 mg/mg (0-0.20)
[2024-12-25 13:05] LABS: Albumin Level 4.7 g/dL (3.5-5.1); Anion Gap 8 mmol/L (4-12); Blood Urea Nitrogen 40 mg/dL (9-20); Calcium 10.2 mg/dL (8.4-10.2); Carbon Dioxide 22 mmol/L (22-30); Chloride 111 mmol/L (98-107); Estimated Glomerular Filt Rate 41; Glucose 147 mg/dL (65-110); Osmolality Calculated 304 mOsm/kg (285-295); Potassium 5.0 mmol/L (3.4-5.0); Sodium 141 mmol/L (137-145)
== END 2024-12-25 11:59 | disposition home or self-care (01) ==
LOC: CHSLAB 12:00
PROVIDERS: PCP Internal Medicine; Visit Provider Internal Medicine Nephrology
DX: N18.32 Chronic kidney disease, stage 3b (principal)
CPT/HCPCS: 36415; 80069; 82570; 84156

== ENCOUNTER 2025-02-23 09:02 | Outpatient (RCR) | payer MEDICARE, OTHER, SELFPAY ==
--- NOTE | 2025-02-23 10:07 | OPREHPOC ---
Outpatient Therapy Plan of Care This is a Multidisciplinary Plan of Care that may contain components documented by all disciplines (PT, OT, and ST.) PT Problem 1 PT Problem #1 Knowledge Deficit PT Goal 1 Goal / Goal Update Independent and compliant with HEP. Target Visit 2 PT Problem 2 PT Problem #2 Impaired Strength PT Goal 1 Goal / Goal Update Pt to improve gross bilat LE strength to 5/5. Pt to improve lower abdominal strength to 4/5 for improved lumbar stability when standing and walking. Target Visit 12 PT Problem 3 PT Problem #3 Impaired Functional Mobility PT Goal 1 Goal / Goal Update Pt to report 20% reduction in perceived disability on Oswestry. Pt to report being able to stand for more than 15 minutes before needing to sit. Pt to ambulate with improved upright posture and neutral pelvic position. Target Visit 12 PT Problem 4 PT Problem #4 Impaired Balance PT Goal 1 Goal / Goal Update Pt to improve Tinetti score by 3 points
--- NOTE | 2025-02-23 10:07 | PTOPEVAL1 ---
Assessment and note entered by Niyah Gonzalez, PT Evaluation Information Assessment Status Evaluation ICD-10 Condition Codes (PT) Pain in low back M54.50,Pain in left knee M25.562 Other ICD-10 Condition Codes ( M48.062 PT) Onset 01/16/24 Subjective Information Pt reports he has back pain that goes down to his knee. He notes the pain is aching in nature in his lower back that can worsen when he twists and can also shoot across his back, whereas his pain in his knee is burning. His back pain also worsens when he stands and walks for prolonged periods (10 minutes). He currently ambulates with a cane and he states he keeps it with him at all times for safety/balance. He reports he was here last a couple years ago after getting his L knee replaced . He reports he had an MRI of his lower back in June and within the last couple months he's had steroid shots in his back, and a couple weeks he had his lower back cleaned up and feels like it' s getting better. He takes Lyrica every 4 hours and Tylenol every 6 hours for pain. He reports he sleeps fairly well at night and without pain, and only wakes up to use the bathroom. He does wear depends in case he were to lose control of his bladder and reports he previously had bladder issues but since his clean up surgery he notes this has improved. Reported Pain Level Pain Score 2: Self Report Assessment PT Clinical Summary Mr. Roe is an 79 yo male presenting with spinal stenosis. He demonstrates deficits lower extremity mm strength primarily on the L leg vs R leg as well as deficits in abdominal mm strength and lumbar AROM. He also presents with functional impairments including inability to stand for more than 10 minutes at a time, difficulty ambulating and balancing and he is at high fall risk per Tinetti. He will benefit from skilled PT intervention to improve LE and abdominal mm strength for improved stability of the low back when standing and ambulating, as well as to address postural deficits to improve ability to stand for more than 10 minutes at a time. Plan of Care Interventions Electrical Stimulation,Gait Training,Hot Pack/Cold Pack,Manual Therapy,Neuro Re-education,Patient/ Caregiver Education,Therapeutic Activities, Therapeutic Exercise,Self-Care/Home Management PT Services Indicated Yes Treatment Frequency and 2x/week for 12 visits Duration These treatments will address the objective and functional deficits as defined above. The patient will be advanced safely and appropriately in order for the patient to progress towards his/her prior level of function. Additional exercises will be introduced and as well as a comprehensive home exercise program upon discharge, if needed, ?to ensure carryover of functional gains achieved in the clinic. This treatment plan has been reviewed and agreement upon by the patient.
--- NOTE | 2025-04-02 11:41 | OPREHPOC ---
Outpatient Therapy Plan of Care This is a Multidisciplinary Plan of Care that may contain components documented by all disciplines (PT, OT, and ST.) PT Problem 1 PT Problem #1 Knowledge Deficit PT Goal 1 Goal / Goal Update Independent and compliant with HEP. Target Visit 2 Progress Met PT Problem 2 PT Problem #2 Impaired Strength PT Goal 1 Goal / Goal Update Pt to improve gross bilat LE strength to 5/5. - partially met Pt to improve lower abdominal strength to 4/5 for improved lumbar stability when standing and walking. Target Visit 12 Progress Not Met PT Problem 3 PT Problem #3 Impaired Functional Mobility PT Goal 1 Goal / Goal Update Pt to report 20% reduction in perceived disability on Oswestry. Pt to report being able to stand for more than 15 minutes before needing to sit. Pt to ambulate with improved upright posture and neutral pelvic position. Target Visit 12 Progress Not Met PT Problem 4 PT Problem #4 Impaired Balance PT Goal 1 Goal / Goal Update Pt to improve Tinetti score by 3 points Progress Met
--- NOTE | 2025-04-02 11:41 | PTOPPROG ---
Assessment and note entered by Niyah Gonzalez, PT Evaluation Information Assessment Status Progress ICD-10 Condition Codes (PT) Pain in low back M54.50,Pain in left knee M25.562 Other ICD-10 Condition Codes ( M48.062 PT) Onset 01/16/24 Subjective Information Mr. Roe was seen for PT progress visit this morning. 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 He reports he does have minimal pain occasionally but he is still limited in functional tasks and ADLs. Assessment PT Clinical Summary Mr. Roe has attended 10 skilled PT visits for low back and L knee pain. Since beginning therapy his pain is increased today and increases overall when doing more physical work at home such as riding on the tractor. He demonstrates improvements in Tinetti score and R hip strength but he continues to demonstrate weakness in the L hip musculature as well as continued difficulty with prolonged standing. Continued skilled PT intervention is indicated to make further progress toward goals. Plan of Care Interventions Electrical Stimulation,Gait Training,Hot Pack/Cold Pack,Manual Therapy,Neuro Re-education,Patient/ Caregiver Education,Therapeutic Activities, Therapeutic Exercise,Self-Care/Home Management PT Services Indicated Yes Treatment Frequency and Continue per POC Duration These treatments will address the objective and functional deficits as defined above. The patient will be advanced safely and appropriately in order for the patient to progress towards his/her prior level of function. Additional exercises will be introduced and as well as a comprehensive home exercise program upon discharge, if needed, ?to ensure carryover of functional gains achieved in the clinic. This treatment plan has been reviewed and agreement upon by the patient.
--- NOTE | 2025-04-10 08:27 | OPREHPOC ---
Outpatient Therapy Plan of Care This is a Multidisciplinary Plan of Care that may contain components documented by all disciplines (PT, OT, and ST.) PT Problem 1 PT Problem #1 Knowledge Deficit PT Goal 1 Goal / Goal Update Independent and compliant with HEP. Target Visit 2 Progress Met PT Problem 2 PT Problem #2 Impaired Strength PT Goal 1 Goal / Goal Update Pt to improve gross bilat LE strength to 5/5. - partially met Pt to improve lower abdominal strength to 4/5 for improved lumbar stability when standing and walking. Target Visit 12 Progress Not Met PT Goal 2 Goal / Goal Update patient to display 5/5 L knee strength 4+/5 or better bilateral hip strength Target Visit 20 PT Problem 3 PT Problem #3 Impaired Functional Mobility PT Goal 1 Goal / Goal Update Pt to report 20% reduction in perceived disability on Oswestry. not met Pt to report being able to stand for more than 15 minutes before needing to sit. not met Pt to ambulate with improved upright posture and neutral pelvic position. not met Target Visit 12 Progress Not Met PT Goal 2 Goal / Goal Update patient to ambulate with normal gait mechanics of the LE's with TKE of the bilateral LE's during gait cycle Target Visit 20 PT Problem 4 PT Problem #4 Impaired Balance PT Goal 1 Goal / Goal Update Pt to improve Tinetti score by 3 points Progress Met PT Problem 5 PT Problem #5 Impaired Range of Motion PT Goal 1 Goal / Goal Update 0-120 degrees active L knee rom no pain in the pes anserine area of the L knee Target Visit 20
--- NOTE | 2025-04-10 08:27 | PTOPREEVAL ---
Assessment and note entered by JT File, PT Evaluation Information Assessment Status Re-evaluation ICD-10 Condition Codes (PT) Pain in low back M54.50,Pain in left knee M25.562 Other ICD-10 Condition Codes ( M48.062 PT) Onset 01/16/24 Subjective Information patient reports he still has the most pain with standing. he reports this pain is in the lower back. he reports the L knee always hurts and is burning. he reports it is constant. he reports sitting is more comfortable. Reported Pain Level Pain Score 5,2: Self Report Pain Score 3: Self Report Assessment PT Clinical Summary mr. larsen presents to skilled PT for his 12h skilled therapy visit for the lower back and L knee. he displays significant loss of ROM of the L knee since his L TKA therapy ended. he is also tender to palpation at the pes anserine bursa of the L knee. he displays weak L LE strength, decreased L knee rom, and abnormal gait mechanics. although he continues to have lower back pain and deficits in core strength and lumbar rom, continued skilled PT is indicated and will focus on a mixture of lower back and L knee rehab. Plan of Care Interventions Electrical Stimulation,Gait Training,Hot Pack/Cold Pack,Manual Therapy,Neuro Re-education,Patient/ Caregiver Education,Therapeutic Activities, Therapeutic Exercise,Self-Care/Home Management PT Services Indicated Yes Treatment Frequency and 2x weekly for 8 more visits Duration These treatments will address the objective and functional deficits as defined above. The patient will be advanced safely and appropriately in order for the patient to progress towards his/her prior level of function. Additional exercises will be introduced and as well as a comprehensive home exercise program upon discharge, if needed, ?to ensure carryover of functional gains achieved in the clinic. This treatment plan has been reviewed and agreement upon by the patient.
--- NOTE | 2025-05-20 09:55 | OPREHPOC ---
Outpatient Therapy Plan of Care This is a Multidisciplinary Plan of Care that may contain components documented by all disciplines (PT, OT, and ST.) PT Problem 1 PT Problem #1 Knowledge Deficit PT Goal 1 Goal / Goal Update Independent and compliant with HEP. Target Visit 2 Progress Met PT Problem 2 PT Problem #2 Impaired Strength PT Goal 1 Goal / Goal Update Pt to improve gross bilat LE strength to 5/5. - partially met Pt to improve lower abdominal strength to 4/5 for improved lumbar stability when standing and walking. not met Target Visit 12 Progress Partially Met PT Goal 2 Goal / Goal Update patient to display 5/5 L knee strength. met 4+/5 or better bilateral hip strength. not met Target Visit 20 Progress Partially Met PT Problem 3 PT Problem #3 Impaired Functional Mobility PT Goal 1 Goal / Goal Update Pt to report 20% reduction in perceived disability on Oswestry. not met Pt to report being able to stand for more than 15 minutes before needing to sit. not met Pt to ambulate with improved upright posture and neutral pelvic position. not met Target Visit 12 Progress Not Met PT Goal 2 Goal / Goal Update patient to ambulate with normal gait mechanics of the LE's with TKE of the bilateral LE's during gait cycle Target Visit 20 Progress Not Met PT Problem 4 PT Problem #4 Impaired Balance PT Goal 1 Goal / Goal Update Pt to improve Tinetti score by 3 points Progress Met PT Problem 5 PT Problem #5 Impaired Range of Motion PT Goal 1 Goal / Goal Update 0-120 degrees active L knee rom. not met no pain in the pes anserine area of the L knee. not met Target Visit 20 Progress Not Met
--- NOTE | 2025-05-20 09:55 | PTOPDC ---
Assessment and note entered by JT File, PT Evaluation Information Assessment Status Discharge ICD-10 Condition Codes (PT) Pain in low back M54.50,Pain in left knee M25.562 Other ICD-10 Condition Codes ( M48.062 PT) Onset 01/16/24 Subjective Information patient reports not much has changed since his last re-evaluation. he reports he continues to be limited in standing and walking time due to the lower back, and the L knee hurts along the inside of the knee at times with increased walking. he reports he does not yet have a follow up with the knee surgeon scheduled. Reported Pain Level Pain Score 1,1: Self Report Assessment PT Clinical Summary mr. larsen presents to skilled PT services for his 20th skilled PT for the lower back and L knee pain. he presents today with little improvement since his last re-evaluation. patient continues to be limited in standing and walking activities without a support device due to pain in the lower back. he also has pain in the medial side of the L knee. he was educated to continue HEP exercises, and consult follow up with his knee surgeon for possible injection to the L knee pes anserine area . he will DC skilled PT today to an independent HEP at this time. Plan of Care PT Services Indicated Yes
== END 2025-05-24 23:59 | disposition home or self-care (01) ==
LOC: CHSPT 09:02
DX: M48.062 Spinal stenosis, lumbar region with neurogenic claudication (principal); M54.50 Low back pain, unspecified; M25.562 Pain in left knee
CPT/HCPCS: 97014; 97110; 97140; 97150; 97161; G0283